=== PATIENT | female | born 1970 | race Two or more races ===

== ENCOUNTER 2020-11-24 13:01 | Emergency (ER) | payer MEDICAID ==
[~2020-11-24] VITALS: Ht 170.2 cm; Wt 90.9 kg
[~2020-11-24 13:01] MED LIST: ORPH100T PO; OXYC1TAB15 PO
[2020-11-24] MEDS ORDERED: IV NORMAL SALINE 1000ML BAG 1,000 ML IV ONE (13:45)
[2020-11-24] MEDS ORDERED: ONDANSETRON PF 4 MG/2 ML VIAL. IV ONE (13:45)
[2020-11-24] MEDS ORDERED: MORPHINE SULFATE 4 MG/ML VIAL. IV ONE (13:45)
--- NOTE | 2020-11-24 14:36 | ED.ADGEN ---
Past Medical History Past Medical History: Abscess, Anxiety, Cancer, Depression, High Cholesterol, Hypertension, Kidney Stone, Other Additional Past Medical Histor: CERV. CA, Past Surgical History: , Tonsillectomy, Other Additional Past Surgical Histo: , Smoking Status: Former Smoker Additional Information: REPORTS THAT SHE QUIT "11/21/20" Alcohol Use: None Drug Use: None Social History Narrative: LAST NIGHT TOOK FRIENDS CHRIS, OMERO DYKES General Adult EDM: Chief Complaint: EARACHE/EAR PAIN HPI: HPI: Patient is a 50 year old female who presents emergency department with complaints of pain and swelling in her right ear for the last 3 days. Patient states that she went to [facility] yesterday and was prescribed eardrops, ibuprofen, and oral antibiotic. She states that her ear is so swollen she can get the drops to go into her ear. She denies any fever, body aches, nausea, v omiting, dizziness, decreased hearing, syncope, abdominal pain, cough, or sore throat. She currently rates her pain 10 out of 10 on pain scale, she denies any alleviating factors, the pain is worse if her ear is touched or she moves her jaw. Review of Systems: Review of Systems: Complete ROS is negative unless otherwise noted in HPI. Current Medications: Current Medications Medications (Trade) Dose Ordered Sig/[facility] Start Time Stop Time Status Last Admin Dose Admin Morphine Sulfate (Morphine Sulfate) 4 mg 1X ONCE 11/24/20 13:45 11/24/20 13:48 DC 11/24/20 14:28 4 MG Neomycin/ Polymyxin/ Hydrocortisone (Cortisporin Otic) 4 drop 1X ONCE 11/24/20 15:30 11/24/20 15:31 Ondansetron HCl (Zofran) 4 mg 1X ONCE 11/24/20 13:45 11/24/20 13:48 DC 11/24/20 14:28 4 MG Sodium Chloride 1,000 ml @ 1,000 mls/hr 1X ONCE 11/24/20 13:45 11/24/20 14:44 DC 11/24/20 14:27 1,000 MLS/HR Allergies: Allergies: Allergies Coded Allergies Type Severity Reaction Last Updated Verified No Known Drug Allergies 10/01/13 No Physical Exam: PE: See Above Constitutional: Well developed, well nourished, no acute distress, non-toxic appearance. [] HENT: Normocephalic, atraumatic, left TM normal, left external ear normal, nose normal; diffuse erythema and swelling to the right external ear canal, unable to visualize the right TM, pain with movement of R ear Eyes: PERRLA, EOMI, conjunctiva normal, no discharge. [] Neck: Normal range of motion, supple, nontender, no stridor. [] Cardiovascular:Heart rate regular rhythm Lungs & Thorax: Respirations even and unlabored, no retractions, no respiratory distress Skin: Warm, dry; erythema/edema/TTP right tragus, TMJ, and mastoid process Extremities: No cyanosis, ROM intact, no edema. [] Neurologic: Alert and oriented X 3, no focal deficits noted. [] Psychologic: Affect normal, judgement normal, mood normal. [] Current Patient Data: Labs: Laboratory Tests Test 11/24/20 14:22 White Blood Count 7.8 x10^3/uL (4.0-11.0) Red Blood Count 4.24 x10^6/uL (3.50-5.40) Hemoglobin 13.1 g/dL (12.0-15.5) Hematocrit 37.8 % (36.0-47.0) Mean Corpuscular Volume 89 fL (79-100) Mean Corpuscular Hemoglobin 31 pg (25-35) Mean Corpuscular Hemoglobin Concent 35 g/dL (31-37) Red Cell Distribution Width 13.1 % (11.5-14.5) Platelet Count 277 x10^3/uL (140-400) Neutrophils (%) (Auto) 63 % (31-73) Lymphocytes (%) (Auto) 24 % (24-48) Monocytes (%) (Auto) 11 % (0-9) H Eosinophils (%) (Auto) 1 % (0-3) Basophils (%) (Auto) 0 % (0-3) Neutrophils # (Auto) 5.0 x10^3/uL (1.8-7.7) Lymphocytes # (Auto) 1.9 x10^3/uL (1.0-4.8) Monocytes # (Auto) 0.9 x10^3/uL (0.0-1.1) Eosinophils # (Auto) 0.1 x10^3/uL (0.0-0.7) Basophils # (Auto) 0.0 x10^3/uL (0.0-0.2) Sodium Level 139 mmol/L (136-145) Potassium Level 3.8 mmol/L (3.5-5.1) Chloride Level 103 mmol/L (98-107) Carbon Dioxide Level 25 mmol/L (21-32) Anion Gap 11 (6-14) Blood Urea Nitrogen 11 mg/dL (7-20) Creatinine 0.9 mg/dL (0.6-1.0) Estimated GFR (Cockcroft-Gault) 66.3 Glucose Level 155 mg/dL (70-99) H Calcium Level 8.6 mg/dL (8.5-10.1) C-Reactive Protein, Quantitative 71.6 mg/L (0-3.3) H Laboratory Tests 11/24/20 14:22 Laboratory Tests 11/24/20 14:22 Vital Signs: Vital Signs Date Time Temp Pulse Resp B/P (MAP) Pulse Ox O2 Delivery O2 Flow Rate FiO2 11/24/20 14:28 18 100 Room Air 11/24/20 13:40 98.7 90 161/83 (109) 98.7 EKG: EKG: [] Heart Score: C/O Chest Pain: No Risk Scores: Score 0 - 3: 2.5% MACE over next 6 weeks - Discharge Home Score 4 - 6: 20.3% MACE over next 6 weeks - Admit for Clinical Observation Score 7 - 10: 72.7% MACE over next 6 weeks - Early Invasive Strategies Radiology/Procedures: Radiology/Procedures: An ear wick was inserted into the right ear canal by myself, polymyxin/neomycin/HC drops were then administered to expand the wick. No complications, patient tolerated procedure well [] Course & Med Decision Making: Course & Med Decision Making Pertinent Labs and Imaging studies reviewed. (See chart for details) [] Dragon Disclaimer: Dragon Disclaimer: This electronic medical record was generated, in whole or in part, using a voice recognition dictation system. Departure Departure Impression: Primary Impression: Right otitis externa Disposition: HOME / SELF CARE / HOMELESS Condition: STABLE Referrals: NO PCP (PCP) DARIN CHAVARRIA MD Patient Instructions: Otitis Externa, [id number] Additional Instructions: Fill the prescriptions and use as directed. Discontinue use of previously prescribed antibiotic and ear drops. Follow up with ENT on Thursday, I have provided Dr. Chavarria's information. Return to the ER if symptoms worsen or fever develops. Scripts Hydrocodone Bit/Acetaminophen (HYDROCODONE-APAP 5-325 ) 1 Tab Tablet 1 TAB PO PRN Q6HRS PRN for PAIN for 3 Days, #10 TAB 0 Refills Prov: JOAQUIM THOMPSON COMMUN[employer] AFFAIRS DIRECTOR 11/24/20 Levofloxacin (LEVOFLOXACIN) 750 Mg Tablet 1 TAB PO DAILY for 10 Days, #10 TAB 0 Refills Prov: JOAQUIM THOMPSON COMMUNITY AFFAIRS DIRECTOR 11/24/20 Ciprofloxacin/Hydrocortisone (CIPRO HC OTIC SUSPENSION) 10 Ml Drops.susp 3 DROP RIGHT EAR BID for 10 Days, #10 ML 0 Refills Prov: JOAQUIM THOMPSON COMMUN[employer] AFFAIRS DIRECTOR 11/24/20 Problem Qualifiers Primary Impression: Right otitis externa Otitis externa type: diffuse Chronicity: acute Qualified Codes: H60.311 - Diffuse otitis externa, right ear JOAQUIM THOMPSON COMMUN[facility] AFFAIRS DIRECTOR November 24, 2020 14:36
[2020-11-24 14:43] LABS: BASO % 0 % (0-3); EOS # 0.1 x10^3/uL (0.0-0.7); EOS % 1 % (0-3); HEMATOCRIT 37.8 % (36.0-47.0); HEMOGLOBIN 13.1 g/dL (12.0-15.5); LYMPH # 1.9 x10^3/uL (1.0-4.8); LYMPH % 24 % (24-48); MEAN CORPUSCULAR HEMOGLOBIN 31 pg (25-35); MEAN CORPUSCULAR HGB CONC 35 g/dL (31-37); MEAN CORPUSCULAR VOLUME 89 fL (79-100); MONO # 0.9 x10^3/uL (0.0-1.1); MONO % 11 % (0-9); NEUT % 63 % (31-73); PLATELET COUNT 277 x10^3/uL (140-400); RED BLOOD COUNT 4.24 x10^6/uL (3.50-5.40); RED CELL DISTRIBUTION WIDTH 13.1 % (11.5-14.5); WHITE BLOOD COUNT 7.8 x10^3/uL (4.0-11.0)
[2020-11-24 14:51] LABS: CALCIUM 8.6 mg/dL (8.5-10.1); CREATININE 0.9 mg/dL (0.6-1.0); GFR 66.3; POTASSIUM 3.8 mmol/L (3.5-5.1)
[2020-11-24 14:53] LABS: C-REACTIVE PROTEIN 71.6 mg/L (0-3.3)
--- NOTE | 2020-11-24 15:09 | RAD ---
CT MAXILLOFACIAL WITHOUT CONTRAST Clinical indications: Right otitis externa, pain. Technique: Helical CT scanning of both temporal bones was performed. 1 mm reconstructed axial and cor onal small [id number] CT images of each temporal bone were generated and reviewed on a computer mo nitor. One or more of the following dose reduction techniques were utilized: Automated exposure contr ol (AEC), Adjustment of mA and/or kV according to patient size, Use of iterative reconstruction techn ique such as ASiR, CT scan done according to ALARA and image gently/image wisely Findings: Right temporal bone:Partial opacification of the right mastoid air cells The middle ear ossicles are identified and no erosion is seen. The scutum appears normal. Opacification of the middle ear cavity. The vestibulocochlear complex and semicircular canals are morphologically normal in appearance. The internal auditory canal is unremarkable. The facial nerve canal is unremarkable. The jugular foramen is unremarkable. External auditory canal wall thickening. Left temporal bone: The mastoid sinus and aditus ad antrum and epitympanic recess are clear. The midd le ear ossicles are identified and no erosion is seen. The scutum appears normal. No abnormal thicken ing of the tympanic membrane is seen. The middle ear cavity is clear. The vestibulocochlear complex a nd semicircular canals are morphologically normal in appearance. The internal auditory canal is unrem arkable. The facial nerve canal is unremarkable. The jugular foramen is unremarkable. The external ea r canal is open. Impression: Right external auditory canal wall thickening consistent with patient's history of otitis externa. Op acification of the right middle ear and small amount of mastoid fluid, likely coexisting otitis media with mastoid effusion. No evidence of coalescent mastoiditis. No osseous erosions. Electronically signed by: Seng Thompson MD (11/24/2020 3:07 PM) [id number]
[2020-11-24 15:30] VITALS: BP 143/86
[2020-11-24] MEDS ORDERED: NEOMYCIN/POLYMYXIN/HC OTIC SUSPENSION 10ML BOTTLE. AD ONE (15:30)
[2020-11-24] MEDS ORDERED: LEVO750T5 PO (15:38)
[2020-11-24] MEDS ORDERED: CIPR10DR RIGHT EAR (15:38)
[2020-11-24] MEDS ORDERED: HYDR-2761 PO (15:39)
== END 2020-11-24 15:56 | disposition home or self-care (01) ==
LOC: ER 13:01
DX: H60.311 Diffuse otitis externa, right ear (principal); E78.00 Pure hypercholesterolemia, unspecified; I10 Essential (primary) hypertension; Z87.891 Personal history of nicotine dependence
CPT/HCPCS: 36415; 70486; 80048; 85025; 85651; 86140; 96361; 96374; 96375; 99285; J2270; J2405; J7030

== ENCOUNTER 2021-10-16 02:38 | Inpatient (IN) | payer MEDICAID ==
[~2021-10-16] VITALS: Ht 170.2 cm; Wt 86.4 kg
[~2021-10-16 02:38] MED LIST changes: +CIPR10DR RIGHT EAR; +HYDR-2761 PO; +LEVO750T5 PO
[2021-10-16] MEDS ORDERED: MORPHINE SULFATE 4 MG/ML INJ. IVP ONE (05:15)
[2021-10-16] MEDS ORDERED: ONDANSETRON PF 4 MG/2 ML VIAL. IVP ONE (05:15)
[2021-10-16] MEDS ORDERED: KETOROLAC 15 MG/ML VIAL. IVP ONE (05:15)
[2021-10-16] MEDS ORDERED: IV NORMAL SALINE 1000ML BAG 1,000 ML IV ONE (05:15)
[2021-10-16 05:35] LABS: BASO % 1 % (0-3); EOS # 0.2 x10^3/uL (0.0-0.7); EOS % 3 % (0-3); HEMATOCRIT 43.3 % (36.0-47.0); HEMOGLOBIN 14.6 g/dL (12.0-15.5); LYMPH # 1.5 x10^3/uL (1.0-4.8); LYMPH % 28 % (24-48); MEAN CORPUSCULAR HEMOGLOBIN 30 pg (25-35); MEAN CORPUSCULAR HGB CONC 34 g/dL (31-37); MEAN CORPUSCULAR VOLUME 89 fL (79-100); MONO # 0.5 x10^3/uL (0.0-1.1); MONO % 9 % (0-9); NEUT # 3.2 x10^3/uL (1.8-7.7); NEUT % 60 % (31-73); PLATELET COUNT 303 x10^3/uL (140-400); RED BLOOD COUNT 4.84 x10^6/uL (3.50-5.40); RED CELL DISTRIBUTION WIDTH 14.7 % (11.5-14.5); WHITE BLOOD COUNT 5.4 x10^3/uL (4.0-11.0)
[2021-10-16 05:44] LABS: CALCIUM 9.2 mg/dL (8.5-10.1); GFR 58.5; POTASSIUM 4.3 mmol/L (3.5-5.1)
[2021-10-16 05:56] LABS: ALBUMIN/GLOBULIN RATIO 1.1 (1.0-1.7); TOTAL BILIRUBIN 1.6 mg/dL (0.2-1.0); TOTAL PROTEIN 7.6 g/dL (6.4-8.2)
--- NOTE | 2021-10-16 06:10 | RAD ---
EXAM: ULTRASOUND ABDOMEN LIMITED CLINICAL HISTORY: Right upper quadrant abdominal pain COMPARISON: CT abdomen August 15, 2018 Findings: The pancreas and most of the aorta and IVC are obscured by bowel gas shadowing. Visualized hepatic IVC is normal. Normal liver echogenicity. No liver mass documented. There is patent hepatopedal portal vein blood fl ow. No gallstones. There is gallbladder sludge. Patient Information Coordinator reports a positive sonographic Godinez sig n. The tobacco wrapping machine tender documents increased gallbladder wall thickness measuring 4 mm however on the saved images the wall thickness appears normal measuring less than 3 mm. No pericholecystic fluid evident. No biliary ductal dilation the common bile duct diameter is 5 mm which is normal. Right renal length 10.3 cm. No mass or hydronephrosis of the right kidney. Spleen and left kidney wer e not evaluated. IMPRESSION: Gallbladder sludge. No gallstones. There is a positive sonographic Godinez sign present, w hile no significant inflammatory changes of the gallbladder are evident sonographically, the positive Godinez's could indicate early changes of cholecystitis. This may be further assessed with hepatobili montserrat scan imaging. Electronically signed by: Lucas Saucedo MD (10/16/2021 6:08 AM) [facility]
--- NOTE | 2021-10-16 06:11 | PHYS DOC ---
Past Medical History Past Medical History: Abscess, Anxiety, Cancer, Depression, High Cholesterol, Hypertension, Kidney Stone, Other Additional Past Medical Histor: CERVICAL CANCER (PATRICIA BALTAZAR MD) Past Surgical History: Additional Past Surgical Histo: , (PATRICIA BALTAZAR MD) Smoking Status: Former Smoker Alcohol Use: None Drug Use: None (PATRICIA BALTAZAR MD) Adult General Chief Complaint Chief Complaint: RIB PAIN HPI HPI The patient is a 51-year-old female with a history of hypertension, hyperlipidemia, cervical cancer recently diagnosed by her certified peer specialist, pending treatment, tobacco use. Ms. Mills presents for evaluation of right upper quadrant abdominal discomfort with radiation to the low midsternal chest, the epigastrium and the lower abdomen, with associated nausea, all with onset a few hours prior to arrival. This is the third episode of identical discomfort the patient has had over the past 2 weeks. Prior to that, she had never had these symptoms in the past. Discomfort is directly reproducible to palpation of the right upper quadrant. Severity of discomfort 6 out of 10 at present. No associated fevers, vomiting, upper respiratory congestion/rhinorrhea, cough, sore throat, shortness of breath, lower abdominal pain, flank pain, midline back pain, dysuria, hematuria, polyuria or oliguria, changes in bowel habits, pain or swelling to arms or legs. (PATRICIA BALTAZAR MD) Review of Systems Review of Systems A 12 point review of systems was completed and was negative except where noted in HPI above. (PATRICIA BALTAZAR MD) Current Medications Current Medications Current Medications Medications (Trade) Dose Ordered Sig/Sonny Start Time Stop Time Status Last Admin Dose Admin Ketorolac Tromethamine (Toradol 15mg Vial) 15 mg 1X ONCE 10/16/21 05:15 10/16/21 05:16 DC 10/16/21 05:26 15 MG Morphine Sulfate (Morphine Sulfate) 2 mg PRN Q2HR PRN 10/16/21 07:00 10/17/21 06:59 Ondansetron HCl (Zofran) 4 mg 1X ONCE 10/16/21 05:15 10/16/21 05:16 DC 10/16/21 05:26 4 MG Piperacillin Sod/ Tazobactam Sod 3.375 gm/Sodium Chloride 50 ml @ 100 mls/hr 1X ONCE 10/16/21 07:00 10/16/21 07:29 Sodium Chloride 1,000 ml @ 1,000 mls/hr 1X ONCE 10/16/21 05:15 10/16/21 06:14 DC 10/16/21 05:26 1,000 MLS/HR (CASSIE GOMEZ DO) Allergies Allergies Allergies Coded Allergies Type Severity Reaction Last Updated Verified No Known Drug Allergies 10/01/13 No (CASSIE GOMEZ DO) Physical Exam Physical Exam 51-year-old female appearing nontoxic and in no acute distress. Head is normocephalic and atraumatic. Neck is supple and nontender. Oropharynx is moist. Lungs are clear to auscultation at all stations. There is a normal S1 and S2 without rubs or gallops and capillary refill is appropriate, less than 2 seconds globally. Abdomen is soft and nondistended with mild focal right upper quadrant tenderness to palpation without rebound or guarding. No lower quadrant tenderness to palpation. Skin is warm and dry without cyanosis, clubbing or edema. Psychiatrically, the patient demonstrates appropriate mood and affect and is alert. Evaluation extremities reveals BUEs and BLEs neurovascularly intact distally with strength 5-5, sensation intact light touch in all nerve distributions, radial, DP and PT pulses 2+ and equal bilaterally, capillary refill less than 2 seconds, hands and feet warm and well-perfused. No dependent peripheral edema distally. No calf tenderness or swelling bilaterally. Homans test is negative bilaterally. (PATRICIA BALTAZAR MD) Current Patient Data Vital Signs Vital Signs Date Time Temp Pulse Resp B/P (MAP) Pulse Ox O2 Delivery O2 Flow Rate FiO2 10/16/21 04:57 98.8 91 16 173/97 (122) 97 Room Air 98.8 (CASSIE GOMEZ DO) Lab Values Laboratory Tests Test 10/16/21 05:22 White Blood Count 5.4 x10^3/uL (4.0-11.0) Red Blood Count 4.84 x10^6/uL (3.50-5.40) Hemoglobin 14.6 g/dL (12.0-15.5) Hematocrit 43.3 % (36.0-47.0) Mean Corpuscular Volume 89 fL (79-100) Mean Corpuscular Hemoglobin 30 pg (25-35) Mean Corpuscular Hemoglobin Concent 34 g/dL (31-37) Red Cell Distribution Width 14.7 % (11.5-14.5) H Platelet Count 303 x10^3/uL (140-400) Neutrophils (%) (Auto) 60 % (31-73) Lymphocytes (%) (Auto) 28 % (24-48) Monocytes (%) (Auto) 9 % (0-9) Eosinophils (%) (Auto) 3 % (0-3) Basophils (%) (Auto) 1 % (0-3) Neutrophils # (Auto) 3.2 x10^3/uL (1.8-7.7) Lymphocytes # (Auto) 1.5 x10^3/uL (1.0-4.8) Monocytes # (Auto) 0.5 x10^3/uL (0.0-1.1) Eosinophils # (Auto) 0.2 x10^3/uL (0.0-0.7) Basophils # (Auto) 0.0 x10^3/uL (0.0-0.2) Sodium Level 139 mmol/L (136-145) Potassium Level 4.3 mmol/L (3.5-5.1) Chloride Level 103 mmol/L (98-107) Carbon Dioxide Level 29 mmol/L (21-32) Anion Gap 7 (6-14) Blood Urea Nitrogen 15 mg/dL (7-20) Creatinine 1.0 mg/dL (0.6-1.0) Estimated GFR (Cockcroft-Gault) 58.5 BUN/Creatinine Ratio 15 (6-20) Glucose Level 109 mg/dL (70-99) H Calcium Level 9.2 mg/dL (8.5-10.1) Total Bilirubin 1.6 mg/dL (0.2-1.0) H Aspartate Amino Transferase (AST) 1587 U/L (15-37) H Alanine Aminotransferase (ALT) 1452 U/L (14-59) H Alkaline Phosphatase 190 U/L (46-116) H Troponin I High Sensitivity 5 ng/L (4-50) Total Protein 7.6 g/dL (6.4-8.2) Albumin 4.0 g/dL (3.4-5.0) Albumin/Globulin Ratio 1.1 (1.0-1.7) Lipase 9056 U/L (73-393) H Laboratory Tests 10/16/21 05:22 Laboratory Tests 10/16/21 05:22 (CASSIE GOMEZ DO) EKG EKG Sinus rhythm, rate 81, no acute ST elevation or depression, DC 136, QRS 76, QTc 414, EP interpretation. Nonischemic tracing, intervals appropriate. (PATRICIA BALTAZAR MD) Radiology/Procedures Radiology/Procedures [] (PATRICIA BALTAZAR MD) Course & Med Decision Making Course & Med Decision Making Pending rest of labs and ultrasound read, transition of care to Dr. Gomez. (PATRICIA BALTAZAR MD) Course & Med Decision Making Discussed with hospitalist and SOC. Labd wiork and US were reviewed Started on abx (CASSIE GOMEZ DO) Dragon Disclaimer Dragon Disclaimer This electronic medical record was generated, in whole or in part, using a voice recognition dictation system. (PATRICIA BALTAZAR MD) Departure Departure Impression: Primary Impression: Right upper quadrant abdominal pain Condition: STABLE Referrals: NO PCP (PCP) PATRICIA BALTAZAR MD Oct 16, 2021 06:11 CASSIE GOMEZ DO Oct 16, 2021 06:52
[2021-10-16] MEDS ORDERED: PIPERACILLIN/TAZOBACTAM 3.375 GM in IV NORMAL SALINE 50ML 50 ML IV ONE (07:00)
[2021-10-16 07:15] LABS: AMORPHOUS SEDIMENT,UR PRESENT /HPF; BACTERIA,URINE FEW /HPF (0-FEW); RBC,URINE 0 /HPF (0-2); WBC,URINE OCC /HPF (0-4)
[2021-10-16] MEDS: MORPHINE SULFATE 2 MG/ML INJ. IVP PRN ×3 (07:46→23:32)
[2021-10-16 08:00] VITALS: BP 136/86
[2021-10-16] MEDS ORDERED: IOHEXOL 300 MG/ML 100ML VIAL. IV ONE (08:15)
[2021-10-16] MEDS ORDERED: CONTRAST GIVEN. MC PRN (08:15)
[2021-10-16] MEDS ORDERED: IOHEXOL 240 MG/ML 50ML VIAL. PO ONE (08:15)
[2021-10-16] MEDS ORDERED: SENNOSIDES 8.6 MG TABLET PO PRN (09:00)
[2021-10-16] MEDS ORDERED: ONDANSETRON PF 4 MG/2 ML VIAL. IVP PRN (09:00)
[2021-10-16] MEDS ORDERED: diphenhydrAMINE 50 MG/ML VIAL IVP PRN (09:00)
[2021-10-16] MEDS ORDERED: MORPHINE SULFATE 2 MG/ML INJ. IV PRN (09:00)
[2021-10-16] MEDS ORDERED: ZOLPIDEM 5 MG TABLET. PO PRN (09:00)
[2021-10-16] MEDS ORDERED: oxyCODONE/APAP 5/325 1 TAB TABLET PO PRN (09:00)
[2021-10-16] MEDS ORDERED: MORPHINE SULFATE 2 MG/ML INJ. IVP PRN (09:00)
[2021-10-16] MEDS ORDERED: DOCUSATE SODIUM 100 MG CAPSULE. PO PRN (09:00)
[2021-10-16] MEDS ORDERED: DEXTROSE 50% 25 GM / 50ML DISP.SYRIN. IV PRN (09:00)
[2021-10-16] MEDS ORDERED: diphenhydrAMINE HCL 25 MG CAPSULE PO PRN (09:00)
[2021-10-16] MEDS ORDERED: LORazepam 0.5 MG TABLET PO PRN (09:00)
[2021-10-16] MEDS ORDERED: PROCHLORPERAZINE 10 MG/2 ML VIAL. IV PRN (09:00)
[2021-10-16] MEDS ORDERED: CLOB15CR TP (09:23)
[2021-10-16] MEDS ORDERED: LISI20TA18 PO (09:23)
[2021-10-16] MEDS ORDERED: PRAV20TA2 PO (09:23)
[2021-10-16] MEDS ORDERED: CITA40TA6 PO (09:23)
[2021-10-16] MEDS: ENOXAPARIN 40 MG/0.4 ML SYRINGE. SQ SCH (09:28)
[2021-10-16] MEDS: IV NORMAL SALINE 1000ML BAG 1,000 ML IV SCH ×2 (09:33→16:56)
--- NOTE | 2021-10-16 10:18 | RAD ---
Exam: CT abdomen/pelvis with intravenous contrast Indication: Pancreatitis Comparison: CT abdomen pelvis 08/15/2018 Technique: Helical CT imaging performed of the abdomen and pelvis after the intravenous administratio n of 75 mL Omnipaque 300 contrast. Sagittal and coronal reformats were obtained. One or more of the following individualized dose reduction techniques were utilized for this examinat ion: 1. Automated exposure control 2. Adjustment of the mA and/or kV according to patient size 3. Use of iterative reconstruction technique. Findings: Lower chest: Mild dependent atelectasis in the lungs. The heart is normal in size. Liver: The liver is normal in size. No focal liver lesion. Gallbladder/Biliary Tree: The gallbladder is mildly distended without obvious wall thickening or radi opaque cholelithiasis. Bile ducts are normal. Pancreas: Normal. Spleen: Normal. Adrenal Glands: Normal. Kidneys/Ureters/Bladder: Kidneys are normal in size and enhance symmetrically. No hydronephrosis. Ure ters and bladder are normal Reproductive Organs: Uterus is anteverted. No adnexal mass. Stomach, small bowel, and colon: Stomach is normal. There is no small bowel obstruction. The appendix is normal. The colon is normal. Vasculature: No aortic aneurysm. Lymph Nodes: No lymphadenopathy. Peritoneum and retroperitoneum: No free fluid or free air. Bones: No acute osseous abnormality. Mild degenerative disc disease. Miscellaneous: None. IMPRESSION: 1. Mildly distended gallbladder. 2. Normal appearance of the pancreas. Electronically signed by: Moira Little MD (10/16/2021 10:15 AM) [id number]
--- NOTE | 2021-10-16 10:32 | PDOC2 ---
GI CONSULT Date of Service: DATE: 10/16/21 TIME: 10:24 Reason For Consult: pancreatitis HPI: HPI: 51 y/o female admitted through ER. Pain "like indigestion" that starts "above my cervix" and radiates to epigastrium and to both sides of abdomen and lower back woke her up during the night. Third occurrence in 2 weeks. Past two times improved w/ Tums. Neoga nauseated, no vomiting. Typically no issues w/ heartburn/reflux. No dysphagia, diarrhea, constipation, hematochezia, melena, change in appetite, or weight loss. No previous EGD or colonoscopy. No GB, liver, pancreas, or PUD history. No NSAIDs. H/o cervical cancer - s/p LEEP years ago. Recently had a pelvic exam, pap, and US - says "it's back" - scheduled for follow-up @ [facility] [place]. PMH: PMH: pre-DM, HTN, recent Shingles , LEEP, abscess drainage (around groin) FH: Family History: Other (has a really big family so doens't really know but brother currently hospitalized for bleeding ulcer) Social History: Smoke: <1 pack per day ALCOHOL: other (had two shots with her friend yesterday, otherwise doesn't drink at all) Drugs: Other (past use - never IVDU) ROS: GEN: Denies fevers, chills, sweats HEENT: Denies blurred vision, sore throat CV: Denies chest pain RESP: Denies shortness of air, cough GI: Per HPI : Denies hematuria, dysuria ENDO: Denies weight changes NEURO: Denies confusion, dizziness MSK: Denies weakness, joint pain/swelling SKIN: Denies jaundice, pruritus Vitals: Vitals: Vital Signs Date Time Temp Pulse Resp B/P (MAP) Pulse Ox O2 Delivery O2 Flow Rate FiO2 10/16/21 09:06 Room Air 10/16/21 08:00 97.5 79 16 136/86 (103) 96 97.5 Labs: Labs: Laboratory Tests Test 10/16/21 05:22 10/16/21 06:35 White Blood Count 5.4 x10^3/uL (4.0-11.0) Red Blood Count 4.84 x10^6/uL (3.50-5.40) Hemoglobin 14.6 g/dL (12.0-15.5) Hematocrit 43.3 % (36.0-47.0) Mean Corpuscular Volume 89 fL (79-100) Mean Corpuscular Hemoglobin 30 pg (25-35) Mean Corpuscular Hemoglobin Concent 34 g/dL (31-37) Red Cell Distribution Width 14.7 % (11.5-14.5) Platelet Count 303 x10^3/uL (140-400) Neutrophils (%) (Auto) 60 % (31-73) Lymphocytes (%) (Auto) 28 % (24-48) Monocytes (%) (Auto) 9 % (0-9) Eosinophils (%) (Auto) 3 % (0-3) Basophils (%) (Auto) 1 % (0-3) Neutrophils # (Auto) 3.2 x10^3/uL (1.8-7.7) Lymphocytes # (Auto) 1.5 x10^3/uL (1.0-4.8) Monocytes # (Auto) 0.5 x10^3/uL (0.0-1.1) Eosinophils # (Auto) 0.2 x10^3/uL (0.0-0.7) Basophils # (Auto) 0.0 x10^3/uL (0.0-0.2) Sodium Level 139 mmol/L (136-145) Potassium Level 4.3 mmol/L (3.5-5.1) Chloride Level 103 mmol/L (98-107) Carbon Dioxide Level 29 mmol/L (21-32) Anion Gap 7 (6-14) Blood Urea Nitrogen 15 mg/dL (7-20) Creatinine 1.0 mg/dL (0.6-1.0) Estimated GFR (Cockcroft-Gault) 58.5 BUN/Creatinine Ratio 15 (6-20) Glucose Level 109 mg/dL (70-99) Calcium Level 9.2 mg/dL (8.5-10.1) Total Bilirubin 1.6 mg/dL (0.2-1.0) Aspartate Amino Transf (AST/SGOT) 1587 U/L (15-37) Alanine Aminotransferase (ALT/SGPT) 1452 U/L (14-59) Alkaline Phosphatase 190 U/L (46-116) Troponin I High Sensitivity 5 ng/L (4-50) Total Protein 7.6 g/dL (6.4-8.2) Albumin 4.0 g/dL (3.4-5.0) Albumin/Globulin Ratio 1.1 (1.0-1.7) Lipase 9056 U/L (73-393) Urine Collection Type Unknown Urine Color (Auto) Yellow Urine Turbidity Hazy Urine pH (Auto) 6.5 (<5.0-8.0) Urine Specific [place] 1.021 (1.000-1.030) Urine Protein (Auto) Negative mg/dL (Negative) Urine Glucose (Auto)(UA) Negative mg/dL (Negative) Urine Ketones (Auto) Negative mg/dL (Negative) Urine Blood (Auto) Negative (Negative) Urine Nitrite Negative (Negative) Urine Bilirubin (Auto) Negative (Negative) Urine Urobilinogen (Auto) 3 mg/dL (Normal) Urine Leukocyte Esterase (Auto) Negative (Negative) Urine RBC 0 /HPF (0-2) Urine WBC Occ /HPF (0-4) Urine Squamous Epithelial Cells Few /LPF Urine Amorphous Sediment Present /HPF Urine Bacteria Few /HPF (0-FEW) Urine Mucus Slight /LPF Allergies: Coded Allergies: No Known Drug Allergies (Unverified , 10/01/13) Medications: Current Medications Medications (Trade) Dose Ordered Sig/Sonny Route PRN Reason Start Time Stop Time Status Last Admin Dose Admin Sodium Chloride 1,000 ml @ 1,000 mls/hr 1X ONCE IV 10/16/21 05:15 10/16/21 06:14 DC 10/16/21 05:26 Ondansetron HCl (Zofran) 4 mg 1X ONCE IVP 10/16/21 05:15 10/16/21 05:16 DC 10/16/21 05:26 Ketorolac Tromethamine (Toradol 15mg Vial) 15 mg 1X ONCE IVP 10/16/21 05:15 10/16/21 05:16 DC 10/16/21 05:26 Morphine Sulfate (Morphine Sulfate) 4 mg 1X ONCE IVP 10/16/21 05:15 10/16/21 05:16 DC 10/16/21 05:27 Piperacillin Sod/ Tazobactam Sod 3.375 gm/Sodium Chloride 50 ml @ 100 mls/hr 1X ONCE IV 10/16/21 07:00 10/16/21 07:29 DC 10/16/21 07:27 Morphine Sulfate (Morphine Sulfate) 2 mg PRN Q2HR PRN IVP PAIN 10/16/21 07:00 10/17/21 06:59 10/16/21 07:46 Iohexol (Omnipaque 240 Mg/ml) 50 ml 1X ONCE PO 10/16/21 08:15 10/16/21 08:16 DC 10/16/21 08:15 Iohexol (Omnipaque 300 Mg/ml) 75 ml 1X ONCE IV 10/16/21 08:15 10/16/21 08:16 DC 10/16/21 08:15 Sodium Chloride 1,000 ml @ 100 mls/hr Q10H IV 10/16/21 09:00 10/16/21 09:33 Enoxaparin Sodium (Lovenox 40mg Syringe) 40 mg Q24H SQ 10/16/21 10:00 10/16/21 09:28 Imaging: Imaging: Abd US IMPRESSION: Gallbladder sludge. No gallstones. There is a positive sonographic Godinez sign present, while no significant inflammatory changes of the gallbladder are evident sonographically, the positive Godinez's could indicate early changes of cholecystitis. This may be further assessed with hepatobiliary scan imaging. CBD 5mm CT A/P IMPRESSION: 1. Mildly distended gallbladder. 2. Normal appearance of the pancreas. PE: GEN: NAD HEENT: Atraumatic, PERRL LUNGS: CTAB HEART: RRR ABD: quiet, soft, non-tender - "I just got morphine" EXTREMITY: No edema SKIN: points to area where recently had Shingles rash - healed NEURO/PSYCH: A & O 3 A/P: A/P: Recurrent abdominal pain Pancreatitis, elevated LFTs - GB sludge, normal CBD, unremarkable pancreas on imaging H/o cervical cancer -- Observe GI-hilliard - supportive care. Surgery opinion pending - eventually need cholecystectomy/IOC. Empiric PPI. CORBY CORDON Oct 16, 2021 10:32
[2021-10-16] MEDS: PANTOPRAZOLE IV PUSH 40 MG VIAL. IVP SCH (10:56)
[2021-10-16 11:00] VITALS: BP 118/77
--- NOTE | 2021-10-16 11:28 | PDOC1 ---
History and Physical Date of Service: DOS: DATE: 10/16/21 TIME: 11:21 History of Present Illness: HPI: 51-year-old female with past medical history of depression/anxiety, hypertension and kidney stones and cervical cancer who is pending treatment for that comes in with right upper quadrant pain that radiates to the substernal region and lower abdominal region. She does endorse nausea a few hours before arrival. Apparently this is the third episode of similar abdominal pain for the past 2 weeks. She has never had pain like this before that. Pain is 6 out of 10. Denies fevers, shortness of breath, cough, upper respiratory symptoms, hematuria, constipation, diarrhea, oliguria or extremity pain. Past Medical/Surgical History: PMH/PSH: Past Medical History: Abscess, Anxiety, Cancer, Depression, High Cholesterol, Hypertension, Kidney Stone, CERVICAL CANCER Past Surgical History: , , Allergies: Allergies: Coded Allergies: No Known Drug Allergies (Unverified , 10/01/13) Family History: Family History: Reviewed with no relative findings in the chart Social History: Social History: Smoking Status: Former Smoker Alcohol Use: None Drug Use: None Current Medications: Current Medications Current Medications Sodium Chloride 1,000 ml @ 1,000 mls/hr 1X ONCE IV Last administered on 10/16/21at 05:26; Start 10/16/21 at 05:15; Stop 10/16/21 at 06:14; Status DC Ondansetron HCl (Zofran) 4 mg 1X ONCE IVP Last administered on 10/16/21at 05:26; Start 10/16/21 at 05:15; Stop 10/16/21 at 05:16; Status DC Ketorolac Tromethamine (Toradol 15mg Vial) 15 mg 1X ONCE IVP Last administered on 10/16/21at 05:26; Start 10/16/21 at 05:15; Stop 10/16/21 at 05:16; Status DC Morphine Sulfate (Morphine Sulfate) 4 mg 1X ONCE IVP Last administered on 10/16/21at 05:27; Start 10/16/21 at 05:15; Stop 10/16/21 at 05:16; Status DC Piperacillin Sod/ Tazobactam Sod 3.375 gm/Sodium Chloride 50 ml @ 100 mls/hr 1X ONCE IV Last administered on 10/16/21at 07:27; Start 10/16/21 at 07:00; Stop 10/16/21 at 07:29; Status DC Morphine Sulfate (Morphine Sulfate) 2 mg PRN Q2HR PRN IVP PAIN Last administered on 10/16/21at 07:46; Start 10/16/21 at 07:00; Stop 10/17/21 at 06:59 Iohexol (Omnipaque 240 Mg/ml) 50 ml 1X ONCE PO Last administered on 10/16/21at 08:15; Start 10/16/21 at 08:15; Stop 10/16/21 at 08:16; Status DC Iohexol (Omnipaque 300 Mg/ml) 75 ml 1X ONCE IV Last administered on 10/16/21at 08:15; Start 10/16/21 at 08:15; Stop 10/16/21 at 08:16; Status DC Info (CONTRAST GIVEN -- Rx MONITORING) 1 each PRN DAILY PRN MC SEE COMMENTS; Start 10/16/21 at 08:15; Stop 10/18/21 at 08:14 Sennosides (Senna) 17.2 mg PRN BID PRN PO CONSTIPATION; Start 10/16/21 at 09:00 Docusate Sodium (Colace) 100 mg PRN DAILY PRN PO HARD STOOLS; Start 10/16/21 at 09:00 Ondansetron HCl (Zofran) 4 mg PRN Q6HRS PRN IVP NAUSEA/VOMITING, 1st CHOICE; Start 10/16/21 at 09:00 Dextrose (Dextrose 50%-Water Syringe) 12.5 gm PRN Q15MIN PRN IV SEE COMMENTS; Start 10/16/21 at 09:00 Sodium Chloride 1,000 ml @ 100 mls/hr Q10H IV Last administered on 10/16/21at 09:33; Start 10/16/21 at 09:00 Acetaminophen (Tylenol) 650 mg PRN Q4HRS PRN PO TEMP OVER 100.4F OR MILD PAIN; Start 10/16/21 at 09:00 Lorazepam (Ativan) 0.5 mg PRN Q6HRS PRN PO ANXIETY / AGITATION; Start 10/16/21 at 09:00 Lorazepam (Ativan Inj) 0.25 mg PRN Q4HRS PRN IV ANXIETY / AGITATION; Start 10/16/21 at 09:00 Enoxaparin Sodium (Lovenox 40mg Syringe) 40 mg Q24H SQ Last administered on 10/16/21at 09:28; Start 10/16/21 at 10:00 Oxycodone/ Acetaminophen (Percocet 5/325) 1 tab PRN Q4HRS PRN PO MILD PAIN, 1ST CHOICE; Start 10/16/21 at 09:00 Oxycodone/ Acetaminophen (Percocet 5/325) 2 tab PRN Q4HRS PRN PO MODERATE PAIN, SEVERE PAIN; Start 10/16/21 at 09:00 Morphine Sulfate (Morphine Sulfate) 1 mg PRN Q1HR PRN IV PAIN; Start 10/16/21 at 09:00 Morphine Sulfate (Morphine Sulfate) 2 mg PRN Q2HR PRN IVP SEVERE PAIN 7-10; Start 10/16/21 at 09:00; Stop 10/17/21 at 08:59 Prochlorperazine Edisylate (Compazine) 10 mg PRN Q6HRS PRN IV NAUSEA/VOMITING, 2nd CHOICE; Start 10/16/21 at 09:00 Diphenhydramine HCl (Benadryl) 25 mg PRN Q6HRS PRN IVP ITCHING; Start 10/16/21 at 09:00 Diphenhydramine HCl (Benadryl) 25 mg PRN Q6HRS PRN PO ITCHING; Start 10/16/21 at 09:00 Diphenhydramine HCl (Benadryl) 25 mg PRN QHS PRN PO INSOMNIA, 1st CHOICE; Start 10/16/21 at 09:00 Zolpidem Tartrate (Ambien) 2.5 mg PRN QHS PRN PO INSOMNIA, 2nd CHOICE; Start 10/16/21 at 09:00 Pantoprazole Sodium (PROTONIX VIAL for IV PUSH) 40 mg DAILYAC IVP Last administered on 10/16/21at 10:56; Start 10/16/21 at 11:30 Active Scripts Active Reported Clobetasol Propionate 15 Gm Cream..g. 1 Avni TP QODAY Citalopram Hbr (Citalopram Hydrobromide) 40 Mg Tablet 1 Tab PO DAILY Pravastatin Sodium 20 Mg Tablet 1 Tab PO DAILY Lisinopril 20 Mg Tablet 1 Tab PO DAILY ROS: Review of Systems Review of System REVIEW OF SYSTEMS: GENERAL: Denies weakness SKIN: No bruising, hair changes or rashes. EYES: No blurred, double or loss of vision. NOSE AND THROAT: No history of nosebleeds, hoarseness or sore throat. HEART: No history of palpitations, chest pain or shortness of breath on exertion. LUNGS: Denies cough, hemoptysis, wheezing or shortness of breath. GASTROINTESTINAL: Positive for abdominal pain GENITOURINARY: No history of frequency, urgency, hesitancy or nocturia. NEUROLOGIC: Denies history of numbness, tingling, or tremor. PSYCHIATRIC: No history of panic, anxiety or depression. ENDOCRINE: No history of heat or cold intolerance, polyuria or polydipsia. EXTREMITIES: Denies joint pain, pain on walking or stiffness. Physical Exam: Vital Signs: Vital Signs Date Time Temp Pulse Resp B/P (MAP) Pulse Ox O2 Delivery O2 Flow Rate FiO2 10/16/21 09:06 Room Air 10/16/21 08:00 97.5 79 16 136/86 (103) 96 97.5 Physcial Exam: General: Well developed, well nourished, no acute distress, well appearing HEENT: Pupils equally round and reactive to light, EOMI, no discharge, normal conjunctiva Neck: Supple, no nuchal rigidity, no JVD, trachea midline, no tenderness Cardiac: RRR, no murmurs, no gallops, no rubs Chest/Lungs: CTAB, no wheeze, no rhonchi, no crackles Abdomen: soft, non-distended, no guarding, no peritoneal signs, tenderness to the epigastric and right upper quadrant portions Back: No tenderness Extremities: no edema, pulses intact, non-tender,capillary refill <3 sec bilateral upper and lower extremities, Neuro: Alert and oriented x 4, no focal deficits, normal speech Labs: Labs: Laboratory Tests Test 10/16/21 05:22 10/16/21 06:35 White Blood Count 5.4 x10^3/uL (4.0-11.0) Red Blood Count 4.84 x10^6/uL (3.50-5.40) Hemoglobin 14.6 g/dL (12.0-15.5) Hematocrit 43.3 % (36.0-47.0) Mean Corpuscular Volume 89 fL (79-100) Mean Corpuscular Hemoglobin 30 pg (25-35) Mean Corpuscular Hemoglobin Concent 34 g/dL (31-37) Red Cell Distribution Width 14.7 % (11.5-14.5) Platelet Count 303 x10^3/uL (140-400) Neutrophils (%) (Auto) 60 % (31-73) Lymphocytes (%) (Auto) 28 % (24-48) Monocytes (%) (Auto) 9 % (0-9) Eosinophils (%) (Auto) 3 % (0-3) Basophils (%) (Auto) 1 % (0-3) Neutrophils # (Auto) 3.2 x10^3/uL (1.8-7.7) Lymphocytes # (Auto) 1.5 x10^3/uL (1.0-4.8) Monocytes # (Auto) 0.5 x10^3/uL (0.0-1.1) Eosinophils # (Auto) 0.2 x10^3/uL (0.0-0.7) Basophils # (Auto) 0.0 x10^3/uL (0.0-0.2) Sodium Level 139 mmol/L (136-145) Potassium Level 4.3 mmol/L (3.5-5.1) Chloride Level 103 mmol/L (98-107) Carbon Dioxide Level 29 mmol/L (21-32) Anion Gap 7 (6-14) Blood Urea Nitrogen 15 mg/dL (7-20) Creatinine 1.0 mg/dL (0.6-1.0) Estimated GFR (Cockcroft-Gault) 58.5 BUN/Creatinine Ratio 15 (6-20) Glucose Level 109 mg/dL (70-99) Calcium Level 9.2 mg/dL (8.5-10.1) Total Bilirubin 1.6 mg/dL (0.2-1.0) Aspartate Amino Transf (AST/SGOT) 1587 U/L (15-37) Alanine Aminotransferase (ALT/SGPT) 1452 U/L (14-59) Alkaline Phosphatase 190 U/L (46-116) Troponin I High Sensitivity 5 ng/L (4-50) Total Protein 7.6 g/dL (6.4-8.2) Albumin 4.0 g/dL (3.4-5.0) Albumin/Globulin Ratio 1.1 (1.0-1.7) Lipase 9056 U/L (73-393) Urine Collection Type Unknown Urine Color (Auto) Yellow Urine Turbidity Hazy Urine pH (Auto) 6.5 (<5.0-8.0) Urine Specific Bassett 1.021 (1.000-1.030) Urine Protein (Auto) Negative mg/dL (Negative) Urine Glucose (Auto)(UA) Negative mg/dL (Negative) Urine Ketones (Auto) Negative mg/dL (Negative) Urine Blood (Auto) Negative (Negative) Urine Nitrite Negative (Negative) Urine Bilirubin (Auto) Negative (Negative) Urine Urobilinogen (Auto) 3 mg/dL (Normal) Urine Leukocyte Esterase (Auto) Negative (Negative) Urine RBC 0 /HPF (0-2) Urine WBC Occ /HPF (0-4) Urine Squamous Epithelial Cells Few /LPF Urine Amorphous Sediment Present /HPF Urine Bacteria Few /HPF (0-FEW) Urine Mucus Slight /LPF Laboratory Tests Test 10/16/21 05:22 10/16/21 06:35 White Blood Count 5.4 x10^3/uL (4.0-11.0) Red Blood Count 4.84 x10^6/uL (3.50-5.40) Hemoglobin 14.6 g/dL (12.0-15.5) Hematocrit 43.3 % (36.0-47.0) Mean Corpuscular Volume 89 fL (79-100) Mean Corpuscular Hemoglobin 30 pg (25-35) Mean Corpuscular Hemoglobin Concent 34 g/dL (31-37) Red Cell Distribution Width 14.7 % (11.5-14.5) Platelet Count 303 x10^3/uL (140-400) Neutrophils (%) (Auto) 60 % (31-73) Lymphocytes (%) (Auto) 28 % (24-48) Monocytes (%) (Auto) 9 % (0-9) Eosinophils (%) (Auto) 3 % (0-3) Basophils (%) (Auto) 1 % (0-3) Neutrophils # (Auto) 3.2 x10^3/uL (1.8-7.7) Lymphocytes # (Auto) 1.5 x10^3/uL (1.0-4.8) Monocytes # (Auto) 0.5 x10^3/uL (0.0-1.1) Eosinophils # (Auto) 0.2 x10^3/uL (0.0-0.7) Basophils # (Auto) 0.0 x10^3/uL (0.0-0.2) Sodium Level 139 mmol/L (136-145) Potassium Level 4.3 mmol/L (3.5-5.1) Chloride Level 103 mmol/L (98-107) Carbon Dioxide Level 29 mmol/L (21-32) Anion Gap 7 (6-14) Blood Urea Nitrogen 15 mg/dL (7-20) Creatinine 1.0 mg/dL (0.6-1.0) Estimated GFR (Cockcroft-Gault) 58.5 BUN/Creatinine Ratio 15 (6-20) Glucose Level 109 mg/dL (70-99) Calcium Level 9.2 mg/dL (8.5-10.1) Total Bilirubin 1.6 mg/dL (0.2-1.0) Aspartate Amino Transf (AST/SGOT) 1587 U/L (15-37) Alanine Aminotransferase (ALT/SGPT) 1452 U/L (14-59) Alkaline Phosphatase 190 U/L (46-116) Troponin I High Sensitivity 5 ng/L (4-50) Total Protein 7.6 g/dL (6.4-8.2) Albumin 4.0 g/dL (3.4-5.0) Albumin/Globulin Ratio 1.1 (1.0-1.7) Lipase 9056 U/L (73-393) Urine Collection Type Unknown Urine Color (Auto) Yellow Urine Turbidity Hazy Urine pH (Auto) 6.5 (<5.0-8.0) Urine Specific Bassett 1.021 (1.000-1.030) Urine Protein (Auto) Negative mg/dL (Negative) Urine Glucose (Auto)(UA) Negative mg/dL (Negative) Urine Ketones (Auto) Negative mg/dL (Negative) Urine Blood (Auto) Negative (Negative) Urine Nitrite Negative (Negative) Urine Bilirubin (Auto) Negative (Negative) Urine Urobilinogen (Auto) 3 mg/dL (Normal) Urine Leukocyte Esterase (Auto) Negative (Negative) Urine RBC 0 /HPF (0-2) Urine WBC Occ /HPF (0-4) Urine Squamous Epithelial Cells Few /LPF Urine Amorphous Sediment Present /HPF Urine Bacteria Few /HPF (0-FEW) Urine Mucus Slight /LPF Images: Images PROCEDURE: CT ABD PELV W/ORAL&IV CONTRAST Exam: CT abdomen/pelvis with intravenous contrast Indication: Pancreatitis Comparison: CT abdomen pelvis 08/15/2018 Technique: Helical CT imaging performed of the abdomen and pelvis after the intravenous administration of 75 mL Omnipaque 300 contrast. Sagittal and coronal reformats were obtained. One or more of the following individualized dose reduction techniques were utilized for this examination: 1. Automated exposure control 2. Adjustment of the mA and/or kV according to patient size 3. Use of iterative reconstruction technique. Findings: Lower chest: Mild dependent atelectasis in the lungs. The heart is normal in size. Liver: The liver is normal in size. No focal liver lesion. Gallbladder/Biliary Tree: The gallbladder is mildly distended without obvious wall thickening or radiopaque cholelithiasis. Bile ducts are normal. Pancreas: Normal. Spleen: Normal. Adrenal Glands: Normal. Kidneys/Ureters/Bladder: Kidneys are normal in size and enhance symmetrically. No hydronephrosis. Ureters and bladder are normal Reproductive Organs: Uterus is anteverted. No adnexal mass. Stomach, small bowel, and colon: Stomach is normal. There is no small bowel obstruction. The appendix is normal. The colon is normal. Vasculature: No aortic aneurysm. Lymph Nodes: No lymphadenopathy. Peritoneum and retroperitoneum: No free fluid or free air. Bones: No acute osseous abnormality. Mild degenerative disc disease. Miscellaneous: None. IMPRESSION: 1. Mildly distended gallbladder. 2. Normal appearance of the pancreas. PROCEDURE: ABDOMEN LTD EXAM: ULTRASOUND ABDOMEN LIMITED CLINICAL HISTORY: Right upper quadrant abdominal pain COMPARISON: CT abdomen August 15, 2018 Findings: The pancreas and most of the aorta and IVC are obscured by bowel gas shadowing. Visualized hepatic IVC is normal. Normal liver echogenicity. No liver mass documented. There is patent hepatopedal portal vein blood flow. No gallstones. There is gallbladder sludge. Optical Advisor reports a positive sonographic Godinez sign. The office clerk assistant documents increased gallbladder wall thickness measuring 4 mm however on the saved images the wall thickness appears normal measuring less than 3 mm. No pericholecystic fluid evident. No biliary ductal dilation the common bile duct diameter is 5 mm which is normal. Right renal length 10.3 cm. No mass or hydronephrosis of the right kidney. Spleen and left kidney were not evaluated. IMPRESSION: Gallbladder sludge. No gallstones. There is a positive sonographic Godinez sign present, while no significant inflammatory changes of the gallbladder are evident sonographically, the positive Godinez's could indicate early changes of cholecystitis. This may be further assessed with hepatobiliary scan imaging. Assessment/Plan Assessment/Plan Acute abdominal pain with elevated liver enzymes suggestive of biliary obstruction, possible choledocholithiasis, possible acute cholecystitis Mild hyperbilirubinemia, conjugated versus not conjugated History of depression anxiety History of hypertension History of cervical cancer Admit to hospitalist service for further management GI consult Surgery consult Pending direct bilirubin Pending acute hepatitis panel Continue IV fluids Lovenox for DVT prophylaxis Protonix GI prophylaxis NPO CODE STATUS full Discussed with RN and SW Disposition inpatient management as above DPOA: Undesignated at this time Justifications for Admission Other Justification Gallstone pancreatitis THOM MITCHELL MD Oct 16, 2021 11:28
[2021-10-16 15:00] VITALS: BP 125/77
--- NOTE | 2021-10-16 15:16 | PDOC2 ---
CONSULT Date of Consult Date of Consult DATE: 10/16/21 TIME: 15:10 Reason for Consult Reason for Consult: gallstone pancreatitis, obstructive hepatitis Referring Physician Referring Physician: Dr Quinn Identification/Chief Complaint Chief Complaint epigastric abd pain Source Source: Chart review, Patient History of Present Illness Reason for Visit: 51 yo F with multiple episodes of epigastric abd pain over the last few weeks. This episode more severe. Presents to ER and does feel better today with reduction in pain. Past Medical History Cardiovascular: HTN Heme/Onc: Cancer Psych: Anxiety Renal/: Other (kidney stones, planning radiation treatment for cervical cancer) Past Surgical History Past Surgical History: Family History Family History: No Significant Social History <1 pack per day ALCOHOL: other (had two shots with her friend yesterday, otherwise doesn't drink at all) Drugs: Other (past use - never IVDU) Current Problem List Problem List Problems Medical Problems: (1) Choledocholithiasis with cholecystitis Status: Acute (2) Right upper quadrant abdominal pain Status: Acute Current Medications Current Medications Current Medications Sodium Chloride 1,000 ml @ 1,000 mls/hr 1X ONCE IV Last administered on 10/16/21at 05:26; Start 10/16/21 at 05:15; Stop 10/16/21 at 06:14; Status DC Ondansetron HCl (Zofran) 4 mg 1X ONCE IVP Last administered on 10/16/21at 05:26; Start 10/16/21 at 05:15; Stop 10/16/21 at 05:16; Status DC Ketorolac Tromethamine (Toradol 15mg Vial) 15 mg 1X ONCE IVP Last administered on 10/16/21at 05:26; Start 10/16/21 at 05:15; Stop 10/16/21 at 05:16; Status DC Morphine Sulfate (Morphine Sulfate) 4 mg 1X ONCE IVP Last administered on 10/16/21at 05:27; Start 10/16/21 at 05:15; Stop 10/16/21 at 05:16; Status DC Piperacillin Sod/ Tazobactam Sod 3.375 gm/Sodium Chloride 50 ml @ 100 mls/hr 1X ONCE IV Last administered on 10/16/21at 07:27; Start 10/16/21 at 07:00; Stop 10/16/21 at 07:29; Status DC Morphine Sulfate (Morphine Sulfate) 2 mg PRN Q2HR PRN IVP PAIN Last administered on 10/16/21at 07:46; Start 10/16/21 at 07:00; Stop 10/17/21 at 06:59 Iohexol (Omnipaque 240 Mg/ml) 50 ml 1X ONCE PO Last administered on 10/16/21at 08:15; Start 10/16/21 at 08:15; Stop 10/16/21 at 08:16; Status DC Iohexol (Omnipaque 300 Mg/ml) 75 ml 1X ONCE IV Last administered on 10/16/21at 08:15; Start 10/16/21 at 08:15; Stop 10/16/21 at 08:16; Status DC Info (CONTRAST GIVEN -- Rx MONITORING) 1 each PRN DAILY PRN MC SEE COMMENTS; Start 10/16/21 at 08:15; Stop 10/18/21 at 08:14 Sennosides (Senna) 17.2 mg PRN BID PRN PO CONSTIPATION; Start 10/16/21 at 09:00 Docusate Sodium (Colace) 100 mg PRN DAILY PRN PO HARD STOOLS; Start 10/16/21 at 09:00 Ondansetron HCl (Zofran) 4 mg PRN Q6HRS PRN IVP NAUSEA/VOMITING, 1st CHOICE; Start 10/16/21 at 09:00 Dextrose (Dextrose 50%-Water Syringe) 12.5 gm PRN Q15MIN PRN IV SEE COMMENTS; Start 10/16/21 at 09:00 Sodium Chloride 1,000 ml @ 100 mls/hr Q10H IV Last administered on 10/16/21at 09:33; Start 10/16/21 at 09:00 Acetaminophen (Tylenol) 650 mg PRN Q4HRS PRN PO TEMP OVER 100.4F OR MILD PAIN; Start 10/16/21 at 09:00 Lorazepam (Ativan) 0.5 mg PRN Q6HRS PRN PO ANXIETY / AGITATION; Start 10/16/21 at 09:00 Lorazepam (Ativan Inj) 0.25 mg PRN Q4HRS PRN IV ANXIETY / AGITATION; Start 10/16/21 at 09:00 Enoxaparin Sodium (Lovenox 40mg Syringe) 40 mg Q24H SQ Last administered on 10/16/21at 09:28; Start 10/16/21 at 10:00 Oxycodone/ Acetaminophen (Percocet 5/325) 1 tab PRN Q4HRS PRN PO MILD PAIN, 1ST CHOICE; Start 10/16/21 at 09:00 Oxycodone/ Acetaminophen (Percocet 5/325) 2 tab PRN Q4HRS PRN PO MODERATE PAIN, SEVERE PAIN; Start 10/16/21 at 09:00 Morphine Sulfate (Morphine Sulfate) 1 mg PRN Q1HR PRN IV PAIN; Start 10/16/21 at 09:00 Morphine Sulfate (Morphine Sulfate) 2 mg PRN Q2HR PRN IVP SEVERE PAIN 7-10; Start 10/16/21 at 09:00; Stop 10/17/21 at 08:59 Prochlorperazine Edisylate (Compazine) 10 mg PRN Q6HRS PRN IV NAUSEA/VOMITING, 2nd CHOICE; Start 10/16/21 at 09:00 Diphenhydramine HCl (Benadryl) 25 mg PRN Q6HRS PRN IVP ITCHING; Start 10/16/21 at 09:00 Diphenhydramine HCl (Benadryl) 25 mg PRN Q6HRS PRN PO ITCHING; Start 10/16/21 at 09:00 Diphenhydramine HCl (Benadryl) 25 mg PRN QHS PRN PO INSOMNIA, 1st CHOICE; Start 10/16/21 at 09:00 Zolpidem Tartrate (Ambien) 2.5 mg PRN QHS PRN PO INSOMNIA, 2nd CHOICE; Start 10/16/21 at 09:00 Pantoprazole Sodium (PROTONIX VIAL for IV PUSH) 40 mg DAILYAC IVP Last administered on 10/16/21at 10:56; Start 10/16/21 at 11:30 Active Scripts Active Reported Clobetasol Propionate 15 Gm Cream..g. 1 Avni TP QODAY Citalopram Hbr (Citalopram Hydrobromide) 40 Mg Tablet 1 Tab PO DAILY Pravastatin Sodium 20 Mg Tablet 1 Tab PO DAILY Lisinopril 20 Mg Tablet 1 Tab PO DAILY Allergies Allergies: Coded Allergies: No Known Drug Allergies (Unverified , 10/01/13) ROS Gastrointestinal: Yes Nausea, Yes Abdominal Pain Physical Exam General: Alert, Oriented X3, Cooperative, mild distress HEENT: Atraumatic Lungs: Normal air movement Abdomen: Soft, Other (TTP RUQ and epigastric) Extremities: No clubbing, No cyanosis Skin: No rashes, No breakdown Neuro: Normal speech, Sensation intact Psych/Mental Status: Mental status NL, Mood NL Vitals VITALS Vital Signs Date Time Temp Pulse Resp B/P (MAP) Pulse Ox O2 Delivery O2 Flow Rate FiO2 10/16/21 11:00 97.4 70 16 118/77 (91) 93 Room Air 97.4 Labs Labs Laboratory Tests Test 10/16/21 05:22 10/16/21 06:35 White Blood Count 5.4 x10^3/uL (4.0-11.0) Red Blood Count 4.84 x10^6/uL (3.50-5.40) Hemoglobin 14.6 g/dL (12.0-15.5) Hematocrit 43.3 % (36.0-47.0) Mean Corpuscular Volume 89 fL (79-100) Mean Corpuscular Hemoglobin 30 pg (25-35) Mean Corpuscular Hemoglobin Concent 34 g/dL (31-37) Red Cell Distribution Width 14.7 % (11.5-14.5) Platelet Count 303 x10^3/uL (140-400) Neutrophils (%) (Auto) 60 % (31-73) Lymphocytes (%) (Auto) 28 % (24-48) Monocytes (%) (Auto) 9 % (0-9) Eosinophils (%) (Auto) 3 % (0-3) Basophils (%) (Auto) 1 % (0-3) Neutrophils # (Auto) 3.2 x10^3/uL (1.8-7.7) Lymphocytes # (Auto) 1.5 x10^3/uL (1.0-4.8) Monocytes # (Auto) 0.5 x10^3/uL (0.0-1.1) Eosinophils # (Auto) 0.2 x10^3/uL (0.0-0.7) Basophils # (Auto) 0.0 x10^3/uL (0.0-0.2) Sodium Level 139 mmol/L (136-145) Potassium Level 4.3 mmol/L (3.5-5.1) Chloride Level 103 mmol/L (98-107) Carbon Dioxide Level 29 mmol/L (21-32) Anion Gap 7 (6-14) Blood Urea Nitrogen 15 mg/dL (7-20) Creatinine 1.0 mg/dL (0.6-1.0) Estimated GFR (Cockcroft-Gault) 58.5 BUN/Creatinine Ratio 15 (6-20) Glucose Level 109 mg/dL (70-99) Calcium Level 9.2 mg/dL (8.5-10.1) Total Bilirubin 1.6 mg/dL (0.2-1.0) Direct Bilirubin 1.1 mg/dL (0.0-0.2) Aspartate Amino Transf (AST/SGOT) 1587 U/L (15-37) Alanine Aminotransferase (ALT/SGPT) 1452 U/L (14-59) Alkaline Phosphatase 190 U/L (46-116) Troponin I High Sensitivity 5 ng/L (4-50) Total Protein 7.6 g/dL (6.4-8.2) Albumin 4.0 g/dL (3.4-5.0) Albumin/Globulin Ratio 1.1 (1.0-1.7) Lipase 9056 U/L (73-393) Hepatitis A IgM Antibody Nonreactive (Nonreactive) Hepatitis B Surface Antigen Nonreactive (Nonreactive) Hepatitis B Core IgM Antibody Nonreactive (Nonreactive) Hepatitis C IgG Antibody Nonreactive (Nonreactive) Urine Collection Type Unknown Urine Color (Auto) Yellow Urine Turbidity Hazy Urine pH (Auto) 6.5 (<5.0-8.0) Urine Specific [place] 1.021 (1.000-1.030) Urine Protein (Auto) Negative mg/dL (Negative) Urine Glucose (Auto)(UA) Negative mg/dL (Negative) Urine Ketones (Auto) Negative mg/dL (Negative) Urine Blood (Auto) Negative (Negative) Urine Nitrite Negative (Negative) Urine Bilirubin (Auto) Negative (Negative) Urine Urobilinogen (Auto) 3 mg/dL (Normal) Urine Leukocyte Esterase (Auto) Negative (Negative) Urine RBC 0 /HPF (0-2) Urine WBC Occ /HPF (0-4) Urine Squamous Epithelial Cells Few /LPF Urine Amorphous Sediment Present /HPF Urine Bacteria Few /HPF (0-FEW) Urine Mucus Slight /LPF Laboratory Tests Test 10/16/21 05:22 10/16/21 06:35 White Blood Count 5.4 x10^3/uL (4.0-11.0) Red Blood Count 4.84 x10^6/uL (3.50-5.40) Hemoglobin 14.6 g/dL (12.0-15.5) Hematocrit 43.3 % (36.0-47.0) Mean Corpuscular Volume 89 fL (79-100) Mean Corpuscular Hemoglobin 30 pg (25-35) Mean Corpuscular Hemoglobin Concent 34 g/dL (31-37) Red Cell Distribution Width 14.7 % (11.5-14.5) Platelet Count 303 x10^3/uL (140-400) Neutrophils (%) (Auto) 60 % (31-73) Lymphocytes (%) (Auto) 28 % (24-48) Monocytes (%) (Auto) 9 % (0-9) Eosinophils (%) (Auto) 3 % (0-3) Basophils (%) (Auto) 1 % (0-3) Neutrophils # (Auto) 3.2 x10^3/uL (1.8-7.7) Lymphocytes # (Auto) 1.5 x10^3/uL (1.0-4.8) Monocytes # (Auto) 0.5 x10^3/uL (0.0-1.1) Eosinophils # (Auto) 0.2 x10^3/uL (0.0-0.7) Basophils # (Auto) 0.0 x10^3/uL (0.0-0.2) Sodium Level 139 mmol/L (136-145) Potassium Level 4.3 mmol/L (3.5-5.1) Chloride Level 103 mmol/L (98-107) Carbon Dioxide Level 29 mmol/L (21-32) Anion Gap 7 (6-14) Blood Urea Nitrogen 15 mg/dL (7-20) Creatinine 1.0 mg/dL (0.6-1.0) Estimated GFR (Cockcroft-Gault) 58.5 BUN/Creatinine Ratio 15 (6-20) Glucose Level 109 mg/dL (70-99) Calcium Level 9.2 mg/dL (8.5-10.1) Total Bilirubin 1.6 mg/dL (0.2-1.0) Direct Bilirubin 1.1 mg/dL (0.0-0.2) Aspartate Amino Transf (AST/SGOT) 1587 U/L (15-37) Alanine Aminotransferase (ALT/SGPT) 1452 U/L (14-59) Alkaline Phosphatase 190 U/L (46-116) Troponin I High Sensitivity 5 ng/L (4-50) Total Protein 7.6 g/dL (6.4-8.2) Albumin 4.0 g/dL (3.4-5.0) Albumin/Globulin Ratio 1.1 (1.0-1.7) Lipase 9056 U/L (73-393) Hepatitis A IgM Antibody Nonreactive (Nonreactive) Hepatitis B Surface Antigen Nonreactive (Nonreactive) Hepatitis B Core IgM Antibody Nonreactive (Nonreactive) Hepatitis C IgG Antibody Nonreactive (Nonreactive) Urine Collection Type Unknown Urine Color (Auto) Yellow Urine Turbidity Hazy Urine pH (Auto) 6.5 (<5.0-8.0) Urine Specific [place] 1.021 (1.000-1.030) Urine Protein (Auto) Negative mg/dL (Negative) Urine Glucose (Auto)(UA) Negative mg/dL (Negative) Urine Ketones (Auto) Negative mg/dL (Negative) Urine Blood (Auto) Negative (Negative) Urine Nitrite Negative (Negative) Urine Bilirubin (Auto) Negative (Negative) Urine Urobilinogen (Auto) 3 mg/dL (Normal) Urine Leukocyte Esterase (Auto) Negative (Negative) Urine RBC 0 /HPF (0-2) Urine WBC Occ /HPF (0-4) Urine Squamous Epithelial Cells Few /LPF Urine Amorphous Sediment Present /HPF Urine Bacteria Few /HPF (0-FEW) Urine Mucus Slight /LPF Images Images US with gallbladder distention and sludge, CT without obvious pancreatitis Assessment/Plan Assessment/Plan gallstone pancreatitis appreciate GI agree with bowel rest and supportive care plan laparoscopic versus open cholecystectomy with cholangiogram, pending improvement in pain and pancreatic enzymes. Thanks for consult! CHARLES LEE MD Oct 16, 2021 15:16
[2021-10-16 19:00] VITALS: BP 142/94
[2021-10-16] MEDS: diphenhydrAMINE HCL 25 MG CAPSULE PO PRN (20:12)
[2021-10-16] MEDS: oxyCODONE/APAP 5/325 1 TAB TABLET PO PRN (20:12)
[2021-10-16 23:00] VITALS: BP 137/54
[2021-10-17 03:10] VITALS: BP 132/91
[2021-10-17 05:37] LABS: BASO % 1 % (0-3); EOS # 0.2 x10^3/uL (0.0-0.7); EOS % 5 % (0-3); HEMATOCRIT 37.8 % (36.0-47.0); HEMOGLOBIN 12.7 g/dL (12.0-15.5); LYMPH # 2.3 x10^3/uL (1.0-4.8); LYMPH % 58 % (24-48); MEAN CORPUSCULAR HEMOGLOBIN 31 pg (25-35); MEAN CORPUSCULAR HGB CONC 34 g/dL (31-37); MEAN CORPUSCULAR VOLUME 91 fL (79-100); MONO # 0.3 x10^3/uL (0.0-1.1); MONO % 7 % (0-9); NEUT # 1.2 x10^3/uL (1.8-7.7); NEUT % 30 % (31-73); PLATELET COUNT 238 x10^3/uL (140-400); RED BLOOD COUNT 4.15 x10^6/uL (3.50-5.40); RED CELL DISTRIBUTION WIDTH 14.6 % (11.5-14.5); WHITE BLOOD COUNT 3.9 x10^3/uL (4.0-11.0)
[2021-10-17] MEDS: IV NORMAL SALINE 1000ML BAG 1,000 ML IV SCH ×3 (05:37→21:20)
[2021-10-17 06:28] LABS: CALCIUM 8.1 mg/dL (8.5-10.1); CREATININE 0.9 mg/dL (0.6-1.0); MAGNESIUM 1.9 mg/dL (1.8-2.4); PHOSPHORUS 3.4 mg/dL (2.6-4.7); POTASSIUM 4.2 mmol/L (3.5-5.1); TOTAL BILIRUBIN 1.2 mg/dL (0.2-1.0)
[2021-10-17 06:38] LABS: DIRECT BILIRUBIN 0.6 mg/dL (0.0-0.2)
[2021-10-17 07:00] VITALS: BP 132/76
[2021-10-17] MEDS: PANTOPRAZOLE IV PUSH 40 MG VIAL. IVP SCH (08:15)
--- NOTE | 2021-10-17 09:51 | PDOC ---
SURGICAL PROGRESS NOTE DATE: 10/17/21 TIME: 09:50 Subjective Pt with c/o low back pain, coming around to front, no n/V, positive hunger Vital Signs Vital Signs Date Time Temp Pulse Resp B/P (MAP) Pulse Ox O2 Delivery O2 Flow Rate FiO2 10/17/21 03:10 97.7 88 14 132/91 (105) 97 Room Air 97.7 I&O Intake and Output 10/17/21 07:00 Intake Total 1950 ml Balance 1950 ml Intake Oral 0 ml IV Total 1950 ml # Voids 4 General: Alert, Oriented X3, Cooperative, mild distress Abdomen: Soft, No tenderness Labs Laboratory Tests Test 10/16/21 05:22 10/16/21 06:35 10/17/21 03:45 White Blood Count 5.4 x10^3/uL (4.0-11.0) 3.9 x10^3/uL (4.0-11.0) Red Blood Count 4.84 x10^6/uL (3.50-5.40) 4.15 x10^6/uL (3.50-5.40) Hemoglobin 14.6 g/dL (12.0-15.5) 12.7 g/dL (12.0-15.5) Hematocrit 43.3 % (36.0-47.0) 37.8 % (36.0-47.0) Mean Corpuscular Volume 89 fL (79-100) 91 fL (79-100) Mean Corpuscular Hemoglobin 30 pg (25-35) 31 pg (25-35) Mean Corpuscular Hemoglobin Concent 34 g/dL (31-37) 34 g/dL (31-37) Red Cell Distribution Width 14.7 % (11.5-14.5) 14.6 % (11.5-14.5) Platelet Count 303 x10^3/uL (140-400) 238 x10^3/uL (140-400) Neutrophils (%) (Auto) 60 % (31-73) 30 % (31-73) Lymphocytes (%) (Auto) 28 % (24-48) 58 % (24-48) Monocytes (%) (Auto) 9 % (0-9) 7 % (0-9) Eosinophils (%) (Auto) 3 % (0-3) 5 % (0-3) Basophils (%) (Auto) 1 % (0-3) 1 % (0-3) Neutrophils # (Auto) 3.2 x10^3/uL (1.8-7.7) 1.2 x10^3/uL (1.8-7.7) Lymphocytes # (Auto) 1.5 x10^3/uL (1.0-4.8) 2.3 x10^3/uL (1.0-4.8) Monocytes # (Auto) 0.5 x10^3/uL (0.0-1.1) 0.3 x10^3/uL (0.0-1.1) Eosinophils # (Auto) 0.2 x10^3/uL (0.0-0.7) 0.2 x10^3/uL (0.0-0.7) Basophils # (Auto) 0.0 x10^3/uL (0.0-0.2) 0.0 x10^3/uL (0.0-0.2) Sodium Level 139 mmol/L (136-145) 138 mmol/L (136-145) Potassium Level 4.3 mmol/L (3.5-5.1) 4.2 mmol/L (3.5-5.1) Chloride Level 103 mmol/L (98-107) 105 mmol/L (98-107) Carbon Dioxide Level 29 mmol/L (21-32) 26 mmol/L (21-32) Anion Gap 7 (6-14) 7 (6-14) Blood Urea Nitrogen 15 mg/dL (7-20) 10 mg/dL (7-20) Creatinine 1.0 mg/dL (0.6-1.0) 0.9 mg/dL (0.6-1.0) Estimated GFR (Cockcroft-Gault) 58.5 66.0 BUN/Creatinine Ratio 15 (6-20) 11 (6-20) Glucose Level 109 mg/dL (70-99) 71 mg/dL (70-99) Calcium Level 9.2 mg/dL (8.5-10.1) 8.1 mg/dL (8.5-10.1) Total Bilirubin 1.6 mg/dL (0.2-1.0) 1.2 mg/dL (0.2-1.0) Direct Bilirubin 1.1 mg/dL (0.0-0.2) 0.6 mg/dL (0.0-0.2) Aspartate Amino Transf (AST/SGOT) 1587 U/L (15-37) 524 U/L (15-37) Alanine Aminotransferase (ALT/SGPT) 1452 U/L (14-59) 1130 U/L (14-59) Alkaline Phosphatase 190 U/L (46-116) 197 U/L (46-116) Troponin I High Sensitivity 5 ng/L (4-50) Total Protein 7.6 g/dL (6.4-8.2) 6.0 g/dL (6.4-8.2) Albumin 4.0 g/dL (3.4-5.0) 3.0 g/dL (3.4-5.0) Albumin/Globulin Ratio 1.1 (1.0-1.7) 1.0 (1.0-1.7) Lipase 9056 U/L (73-393) Hepatitis A IgM Antibody Nonreactive (Nonreactive) Hepatitis B Surface Antigen Nonreactive (Nonreactive) Hepatitis B Core IgM Antibody Nonreactive (Nonreactive) Hepatitis C IgG Antibody Nonreactive (Nonreactive) Urine Collection Type Unknown Urine Color (Auto) Yellow Urine Turbidity Hazy Urine pH (Auto) 6.5 (<5.0-8.0) Urine Specific [place] 1.021 (1.000-1.030) Urine Protein (Auto) Negative mg/dL (Negative) Urine Glucose (Auto)(UA) Negative mg/dL (Negative) Urine Ketones (Auto) Negative mg/dL (Negative) Urine Blood (Auto) Negative (Negative) Urine Nitrite Negative (Negative) Urine Bilirubin (Auto) Negative (Negative) Urine Urobilinogen (Auto) 3 mg/dL (Normal) Urine Leukocyte Esterase (Auto) Negative (Negative) Urine RBC 0 /HPF (0-2) Urine WBC Occ /HPF (0-4) Urine Squamous Epithelial Cells Few /LPF Urine Amorphous Sediment Present /HPF Urine Bacteria Few /HPF (0-FEW) Urine Mucus Slight /LPF Phosphorus Level 3.4 mg/dL (2.6-4.7) Magnesium Level 1.9 mg/dL (1.8-2.4) Laboratory Tests Test 10/17/21 03:45 White Blood Count 3.9 x10^3/uL (4.0-11.0) Red Blood Count 4.15 x10^6/uL (3.50-5.40) Hemoglobin 12.7 g/dL (12.0-15.5) Hematocrit 37.8 % (36.0-47.0) Mean Corpuscular Volume 91 fL (79-100) Mean Corpuscular Hemoglobin 31 pg (25-35) Mean Corpuscular Hemoglobin Concent 34 g/dL (31-37) Red Cell Distribution Width 14.6 % (11.5-14.5) Platelet Count 238 x10^3/uL (140-400) Neutrophils (%) (Auto) 30 % (31-73) Lymphocytes (%) (Auto) 58 % (24-48) Monocytes (%) (Auto) 7 % (0-9) Eosinophils (%) (Auto) 5 % (0-3) Basophils (%) (Auto) 1 % (0-3) Neutrophils # (Auto) 1.2 x10^3/uL (1.8-7.7) Lymphocytes # (Auto) 2.3 x10^3/uL (1.0-4.8) Monocytes # (Auto) 0.3 x10^3/uL (0.0-1.1) Eosinophils # (Auto) 0.2 x10^3/uL (0.0-0.7) Basophils # (Auto) 0.0 x10^3/uL (0.0-0.2) Sodium Level 138 mmol/L (136-145) Potassium Level 4.2 mmol/L (3.5-5.1) Chloride Level 105 mmol/L (98-107) Carbon Dioxide Level 26 mmol/L (21-32) Anion Gap 7 (6-14) Blood Urea Nitrogen 10 mg/dL (7-20) Creatinine 0.9 mg/dL (0.6-1.0) Estimated GFR (Cockcroft-Gault) 66.0 BUN/Creatinine Ratio 11 (6-20) Glucose Level 71 mg/dL (70-99) Calcium Level 8.1 mg/dL (8.5-10.1) Phosphorus Level 3.4 mg/dL (2.6-4.7) Magnesium Level 1.9 mg/dL (1.8-2.4) Total Bilirubin 1.2 mg/dL (0.2-1.0) Direct Bilirubin 0.6 mg/dL (0.0-0.2) Aspartate Amino Transf (AST/SGOT) 524 U/L (15-37) Alanine Aminotransferase (ALT/SGPT) 1130 U/L (14-59) Alkaline Phosphatase 197 U/L (46-116) Total Protein 6.0 g/dL (6.4-8.2) Albumin 3.0 g/dL (3.4-5.0) Albumin/Globulin Ratio 1.0 (1.0-1.7) Problem List Problems Medical Problems: (1) Choledocholithiasis with cholecystitis Status: Acute (2) Right upper quadrant abdominal pain Status: Acute Assessment/Plan gallstone pancreatitis appears improved overall will try clears will plan laparoscopic versus open cholecystectomy with cholangiogram 10/18 Justicifation of Admission Dx: Justifications for Admission: Justification of Admission Dx: Yes Sepsis: Dehydration CHARLES LEE MD Oct 17, 2021 09:51
[2021-10-17] MEDS: ACETAMINOPHEN 325 MG TABLET. PO PRN (09:58)
[2021-10-17] MEDS: ENOXAPARIN 40 MG/0.4 ML SYRINGE. SQ SCH (10:00)
--- NOTE | 2021-10-17 10:22 | PDOC ---
Date of Service: DATE: 10/17/21 TIME: 10:19 Subjective: Subjective: Has a headache, wants ice chips. Abd pain is better. Objective: Vital Signs: Vital Signs Date Time Temp Pulse Resp B/P (MAP) Pulse Ox O2 Delivery O2 Flow Rate FiO2 10/17/21 08:15 Room Air 10/17/21 07:00 97.8 64 18 132/76 (94) 92 97.8 Labs: Laboratory Tests Test 10/17/21 03:45 White Blood Count 3.9 x10^3/uL Red Blood Count 4.15 x10^6/uL Hemoglobin 12.7 g/dL Hematocrit 37.8 % Mean Corpuscular Volume 91 fL Mean Corpuscular Hemoglobin 31 pg Mean Corpuscular Hemoglobin Concent 34 g/dL Red Cell Distribution Width 14.6 % Platelet Count 238 x10^3/uL Neutrophils (%) (Auto) 30 % Lymphocytes (%) (Auto) 58 % Monocytes (%) (Auto) 7 % Eosinophils (%) (Auto) 5 % Basophils (%) (Auto) 1 % Neutrophils # (Auto) 1.2 x10^3/uL Lymphocytes # (Auto) 2.3 x10^3/uL Monocytes # (Auto) 0.3 x10^3/uL Eosinophils # (Auto) 0.2 x10^3/uL Basophils # (Auto) 0.0 x10^3/uL Sodium Level 138 mmol/L Potassium Level 4.2 mmol/L Chloride Level 105 mmol/L Carbon Dioxide Level 26 mmol/L Anion Gap 7 Blood Urea Nitrogen 10 mg/dL Creatinine 0.9 mg/dL Estimated GFR (Cockcroft-Gault) 66.0 BUN/Creatinine Ratio 11 Glucose Level 71 mg/dL Calcium Level 8.1 mg/dL Phosphorus Level 3.4 mg/dL Magnesium Level 1.9 mg/dL Total Bilirubin 1.2 mg/dL Direct Bilirubin 0.6 mg/dL Aspartate Amino Transf (AST/SGOT) 524 U/L Alanine Aminotransferase (ALT/SGPT) 1130 U/L Alkaline Phosphatase 197 U/L Total Protein 6.0 g/dL Albumin 3.0 g/dL Albumin/Globulin Ratio 1.0 PE: GEN: NAD LUNGS: CTAB HEART: RRR ABD: quiet, soft, non-tender NEURO/PSYCH: A & O 3 A/P: Pancreatitis w/ GB sludge Elevated LFTs - favorable trend (though Alk Phos a smidge up), Hep panel negative, normal CBD Headache -- Okay for ice chips per GI - defer to surgery. Looks like plans for cholecystectomy/IOC tomorrow. Monitor LFTs. Justicifation of Admission Dx: Justifications for Admission: Justification of Admission Dx: Yes Sepsis: Dehydration CORBY CORDON Oct 17, 2021 10:22
--- NOTE | 2021-10-17 10:32 | EKG ---
[facility] [address] [place] [address] Test Date: 2021-10-16 Test Time: 05:16:24 Pat Name: ELLIE MYERS Department: Room: Gender: F Front Office Representative: : 1970 Requested By: PATRICIA BALTAZAR Order Number: [id number] Reading MD: Measurements Intervals [place] Rate: 81 P: 35 MT: 136 QRS: 44 QRSD: 76 T: 33 QT: 356 QTc: 414 Interpretive Statements SINUS RHYTHM NORMAL ECG RI6.02 No previous ECG available for comparison
[2021-10-17 11:00] VITALS: BP 156/94
--- NOTE | 2021-10-17 11:22 | PDOC ---
[facility] [facility] PROGRESS NOTE Date of Service DOS: DATE: 10/17/21 TIME: 11:20 Chief Complaint Chief Complaint Assessment/Plan Acute abdominal pain with elevated liver enzymes suggestive of biliary obstruction, possible choledocholithiasis, possible acute cholecystitis Mild hyperbilirubinemia, conjugated versus not conjugated History of depression anxiety History of hypertension History of cervical cancer Admit to hospitalist service for further management GI consult Surgery consult Pending direct bilirubin Pending acute hepatitis panel Continue IV fluids Lovenox for DVT prophylaxis Protonix GI prophylaxis NPO CODE STATUS full Discussed with RN and SW Disposition inpatient management as above DPOA: Undesignated at this time History of Present Illness History of Present Illness 51-year-old female with past medical history of depression/anxiety, hypertension and kidney stones and cervical cancer who is pending treatment for that comes in with right upper quadrant pain that radiates to the substernal region and lower abdominal region. She does endorse nausea a few hours before arrival. Apparently this is the third episode of similar abdominal pain for the past 2 weeks. She has never had pain like this before that. Pain is 6 out of 10. Denies fevers, shortness of breath, cough, upper respiratory symptoms, hematuria, constipation, diarrhea, oliguria or extremity pain. 10/17/2021 No acute events overnight. Patient seen examined bedside. No concerns from nursing. Pain is well controlled. On-call to the OR today for laparoscopic cholecystectomy. Vitals/I&O Vitals/I&O: Vital Signs Date Time Temp Pulse Resp B/P (MAP) Pulse Ox O2 Delivery O2 Flow Rate FiO2 10/17/21 11:00 98.4 87 16 156/94 (114) 97 Room Air 98.4 I & O 10/16/21 10/16/21 10/17/21 15:00 23:00 07:00 Intake Total 1000 ml 950 ml Balance 1000 ml 950 ml Physical Exam General: Alert, Oriented X3, Cooperative, mild distress Abdomen: Soft, No tenderness Extremities: No clubbing, No cyanosis Skin: No rashes, No breakdown Labs Labs: Laboratory Tests Test 10/17/21 03:45 White Blood Count 3.9 x10^3/uL (4.0-11.0) Red Blood Count 4.15 x10^6/uL (3.50-5.40) Hemoglobin 12.7 g/dL (12.0-15.5) Hematocrit 37.8 % (36.0-47.0) Mean Corpuscular Volume 91 fL (79-100) Mean Corpuscular Hemoglobin 31 pg (25-35) Mean Corpuscular Hemoglobin Concent 34 g/dL (31-37) Red Cell Distribution Width 14.6 % (11.5-14.5) Platelet Count 238 x10^3/uL (140-400) Neutrophils (%) (Auto) 30 % (31-73) Lymphocytes (%) (Auto) 58 % (24-48) Monocytes (%) (Auto) 7 % (0-9) Eosinophils (%) (Auto) 5 % (0-3) Basophils (%) (Auto) 1 % (0-3) Neutrophils # (Auto) 1.2 x10^3/uL (1.8-7.7) Lymphocytes # (Auto) 2.3 x10^3/uL (1.0-4.8) Monocytes # (Auto) 0.3 x10^3/uL (0.0-1.1) Eosinophils # (Auto) 0.2 x10^3/uL (0.0-0.7) Basophils # (Auto) 0.0 x10^3/uL (0.0-0.2) Sodium Level 138 mmol/L (136-145) Potassium Level 4.2 mmol/L (3.5-5.1) Chloride Level 105 mmol/L (98-107) Carbon Dioxide Level 26 mmol/L (21-32) Anion Gap 7 (6-14) Blood Urea Nitrogen 10 mg/dL (7-20) Creatinine 0.9 mg/dL (0.6-1.0) Estimated GFR (Cockcroft-Gault) 66.0 BUN/Creatinine Ratio 11 (6-20) Glucose Level 71 mg/dL (70-99) Calcium Level 8.1 mg/dL (8.5-10.1) Phosphorus Level 3.4 mg/dL (2.6-4.7) Magnesium Level 1.9 mg/dL (1.8-2.4) Total Bilirubin 1.2 mg/dL (0.2-1.0) Direct Bilirubin 0.6 mg/dL (0.0-0.2) Aspartate Amino Transf (AST/SGOT) 524 U/L (15-37) Alanine Aminotransferase (ALT/SGPT) 1130 U/L (14-59) Alkaline Phosphatase 197 U/L (46-116) Total Protein 6.0 g/dL (6.4-8.2) Albumin 3.0 g/dL (3.4-5.0) Albumin/Globulin Ratio 1.0 (1.0-1.7) Assessment and Plan Assessmemt and Plan Problems Medical Problems: (1) Choledocholithiasis with cholecystitis Status: Acute (2) Right upper quadrant abdominal pain Status: Acute Comment Review of Relevant I have reviewed the following items devendra (where applicable) has been applied. Medications: Current Medications Medications (Trade) Dose Ordered Sig/Sonny Route PRN Reason Start Time Stop Time Status Last Admin Dose Admin Pantoprazole Sodium (PROTONIX VIAL for IV PUSH) 40 mg DAILYAC IVP 10/16/21 11:30 10/17/21 08:15 Justifications for Admission Other Justification Gallstone pancreatitis THOM MITCHELL MD Oct 17, 2021 11:22
[2021-10-17 15:00] VITALS: BP 147/90
[2021-10-17 19:00] VITALS: BP 135/72
[2021-10-17 23:00] VITALS: BP 138/80
[2021-10-18 03:00] VITALS: BP 151/81
[2021-10-18 05:57] LABS: BASO % 1 % (0-3); EOS # 0.2 x10^3/uL (0.0-0.7); EOS % 4 % (0-3); HEMATOCRIT 38.8 % (36.0-47.0); HEMOGLOBIN 13.5 g/dL (12.0-15.5); LYMPH # 2.2 x10^3/uL (1.0-4.8); LYMPH % 46 % (24-48); MEAN CORPUSCULAR HEMOGLOBIN 31 pg (25-35); MEAN CORPUSCULAR HGB CONC 35 g/dL (31-37); MEAN CORPUSCULAR VOLUME 89 fL (79-100); MONO # 0.4 x10^3/uL (0.0-1.1); MONO % 8 % (0-9); NEUT # 2.1 x10^3/uL (1.8-7.7); NEUT % 42 % (31-73); PLATELET COUNT 250 x10^3/uL (140-400); RED BLOOD COUNT 4.34 x10^6/uL (3.50-5.40); RED CELL DISTRIBUTION WIDTH 14.5 % (11.5-14.5); WHITE BLOOD COUNT 4.9 x10^3/uL (4.0-11.0)
[2021-10-18] MEDS ORDERED: fentaNYL PF VIAL 100 MCG/2 ML VIAL IVP PRN ×2 (06:00)
[2021-10-18] MEDS ORDERED: HEPARIN 1,000 UNIT in IV NORMAL SALINE 1,000 ML for SURG PERIOP IRR ONE (06:00)
[2021-10-18] MEDS ORDERED: HYDROmorphone 2 MG/ML INJ. IVP PRN (06:00)
[2021-10-18] MEDS ORDERED: IV RINGERS,LACTATED 1000ML 1,000 ML IV SCH (06:00)
[2021-10-18] MEDS ORDERED: MORPHINE SULFATE 2 MG/ML INJ. IVP PRN (06:00)
[2021-10-18 06:02] LABS: CALCIUM 8.9 mg/dL (8.5-10.1); CREATININE 0.7 mg/dL (0.6-1.0); GFR 88.2; MAGNESIUM 2.1 mg/dL (1.8-2.4); POTASSIUM 3.9 mmol/L (3.5-5.1)
--- NOTE | 2021-10-18 06:17 | NUR ---
IV restarted left hand by BRENTON Randall. IVF resumed. Has been NPO since OK. States "I can't wait to go home." Has slept most of the noc.
[2021-10-18 06:45] LABS: DIRECT BILIRUBIN 0.2 mg/dL (0.0-0.2); TOTAL BILIRUBIN 0.6 mg/dL (0.2-1.0); TOTAL PROTEIN 6.1 g/dL (6.4-8.2)
[2021-10-18 07:00] VITALS: BP 136/77
[2021-10-18] MEDS: PANTOPRAZOLE IV PUSH 40 MG VIAL. IVP SCH (07:48)
[2021-10-18] MEDS ORDERED: SURGICEL HEMOSTAT 4X8 EACH. ONE (09:01)
[2021-10-18] MEDS ORDERED: BUPIVACAINE-EPI 0.5% 30 ML VIAL KIT. ONE (09:01)
[2021-10-18] MEDS ORDERED: BISACODYL 10 MG SUPP.RECT. ONE (09:01)
[2021-10-18] MEDS ORDERED: IOHEXOL 300 MG/ML 50 ML VIAL. ONE (09:01)
[2021-10-18] MEDS: ENOXAPARIN 40 MG/0.4 ML SYRINGE. SQ SCH (10:00)
--- NOTE | 2021-10-18 10:55 | PDOC ---
Date of Service: DATE: 10/18/21 TIME: 10:52 Subjective: Subjective: Says she doesn't want to have to do the surgery because she's heard some things about people who have had it "like the smell you have afterwards." Objective: Vital Signs: Vital Signs Date Time Temp Pulse Resp B/P (MAP) Pulse Ox O2 Delivery O2 Flow Rate FiO2 10/18/21 08:12 Room Air 10/18/21 07:00 98.4 78 18 136/77 (96) 92 98.4 Labs: Laboratory Tests Test 10/18/21 04:15 10/18/21 08:45 White Blood Count 4.9 x10^3/uL Red Blood Count 4.34 x10^6/uL Hemoglobin 13.5 g/dL Hematocrit 38.8 % Mean Corpuscular Volume 89 fL Mean Corpuscular Hemoglobin 31 pg Mean Corpuscular Hemoglobin Concent 35 g/dL Red Cell Distribution Width 14.5 % Platelet Count 250 x10^3/uL Neutrophils (%) (Auto) 42 % Lymphocytes (%) (Auto) 46 % Monocytes (%) (Auto) 8 % Eosinophils (%) (Auto) 4 % Basophils (%) (Auto) 1 % Neutrophils # (Auto) 2.1 x10^3/uL Lymphocytes # (Auto) 2.2 x10^3/uL Monocytes # (Auto) 0.4 x10^3/uL Eosinophils # (Auto) 0.2 x10^3/uL Basophils # (Auto) 0.0 x10^3/uL Sodium Level 140 mmol/L Potassium Level 3.9 mmol/L Chloride Level 105 mmol/L Carbon Dioxide Level 26 mmol/L Anion Gap 9 Blood Urea Nitrogen 8 mg/dL Creatinine 0.7 mg/dL Estimated GFR (Cockcroft-Gault) 88.2 Glucose Level 86 mg/dL Calcium Level 8.9 mg/dL Magnesium Level 2.1 mg/dL Total Bilirubin 0.6 mg/dL Direct Bilirubin 0.2 mg/dL Aspartate Amino Transf (AST/SGOT) 165 U/L Alanine Aminotransferase (ALT/SGPT) 753 U/L Alkaline Phosphatase 209 U/L Total Protein 6.1 g/dL Albumin 3.0 g/dL Lipase 157 U/L SARS-CoV-2 Antigen (Rapid) Negative PE: GEN: NAD LUNGS: CTAB HEART: RRR ABD: soft, non-tender NEURO/PSYCH: A & O 3, tearful A/P: Pancreatitis w/ GB sludge Elevated LFTs - Alk Phos bit higher, rest better -- Attempted to address concerns re: cholecystectomy. Justicifation of Admission Dx: Justifications for Admission: Justification of Admission Dx: Yes Sepsis: Dehydration CORBY CORDON Oct 18, 2021 10:55
[2021-10-18] MEDS: IV NORMAL SALINE 1000ML BAG 1,000 ML IV SCH ×3 (11:00→21:24)
--- NOTE | 2021-10-18 11:20 | NUR ---
Pt to surgery by bed.
[2021-10-18] MEDS ORDERED: ROCURONIUM 100 MG/10 ML VIAL. ONE (12:13)
[2021-10-18] MEDS ORDERED: fentaNYL PF VIAL 100 MCG/2 ML VIAL ONE (12:13)
[2021-10-18] MEDS ORDERED: DEXAMETHASONE SOD PHOS 4 MG/ML VIAL ONE (12:13)
[2021-10-18] MEDS ORDERED: ONDANSETRON PF 4 MG/2 ML VIAL. ONE (12:13)
[2021-10-18] MEDS ORDERED: PROPOFOL 10 MG/ML (20ML) VIAL. IV ONE (12:13)
[2021-10-18] MEDS ORDERED: LIDOCAINE 2% PF 5 ML VIAL. ONE (12:14)
--- NOTE | 2021-10-18 12:37 | PDOC ---
SURGICAL PROGRESS NOTE DATE: 10/18/21 TIME: 12:35 Subjective Pre-Op Note 51 yo F with gallstone pancreatitis. Pt reports feeling well today. No N/V. Lipase normalized as well as improvement in LFTs. TO OR for laparoscopic versus open cholecystectomy with cholangiogram. R/R/B/A d/w pt. Risks, including, but not limited to: bleeding, infection, damage to surrounding structures, risk of anesthesia, risk of open. She appears to understand, her questions are answered and she elects to proceed. Vital Signs Vital Signs Date Time Temp Pulse Resp B/P (MAP) Pulse Ox O2 Delivery O2 Flow Rate FiO2 10/18/21 11:25 98.2 67 16 161/81 98 Room Air 98.2 I&O Intake and Output 10/18/21 06:59 Intake Total 1200 ml Output Total 0 ml Balance 1200 ml Blood Product IV Normal Saline Flush 1200 ml Output Stool Total 0 ml # Voids 5 Labs Laboratory Tests Test 10/17/21 03:45 10/18/21 04:15 10/18/21 08:45 White Blood Count 3.9 x10^3/uL (4.0-11.0) 4.9 x10^3/uL (4.0-11.0) Red Blood Count 4.15 x10^6/uL (3.50-5.40) 4.34 x10^6/uL (3.50-5.40) Hemoglobin 12.7 g/dL (12.0-15.5) 13.5 g/dL (12.0-15.5) Hematocrit 37.8 % (36.0-47.0) 38.8 % (36.0-47.0) Mean Corpuscular Volume 91 fL (79-100) 89 fL (79-100) Mean Corpuscular Hemoglobin 31 pg (25-35) 31 pg (25-35) Mean Corpuscular Hemoglobin Concent 34 g/dL (31-37) 35 g/dL (31-37) Red Cell Distribution Width 14.6 % (11.5-14.5) 14.5 % (11.5-14.5) Platelet Count 238 x10^3/uL (140-400) 250 x10^3/uL (140-400) Neutrophils (%) (Auto) 30 % (31-73) 42 % (31-73) Lymphocytes (%) (Auto) 58 % (24-48) 46 % (24-48) Monocytes (%) (Auto) 7 % (0-9) 8 % (0-9) Eosinophils (%) (Auto) 5 % (0-3) 4 % (0-3) Basophils (%) (Auto) 1 % (0-3) 1 % (0-3) Neutrophils # (Auto) 1.2 x10^3/uL (1.8-7.7) 2.1 x10^3/uL (1.8-7.7) Lymphocytes # (Auto) 2.3 x10^3/uL (1.0-4.8) 2.2 x10^3/uL (1.0-4.8) Monocytes # (Auto) 0.3 x10^3/uL (0.0-1.1) 0.4 x10^3/uL (0.0-1.1) Eosinophils # (Auto) 0.2 x10^3/uL (0.0-0.7) 0.2 x10^3/uL (0.0-0.7) Basophils # (Auto) 0.0 x10^3/uL (0.0-0.2) 0.0 x10^3/uL (0.0-0.2) Sodium Level 138 mmol/L (136-145) 140 mmol/L (136-145) Potassium Level 4.2 mmol/L (3.5-5.1) 3.9 mmol/L (3.5-5.1) Chloride Level 105 mmol/L (98-107) 105 mmol/L (98-107) Carbon Dioxide Level 26 mmol/L (21-32) 26 mmol/L (21-32) Anion Gap 7 (6-14) 9 (6-14) Blood Urea Nitrogen 10 mg/dL (7-20) 8 mg/dL (7-20) Creatinine 0.9 mg/dL (0.6-1.0) 0.7 mg/dL (0.6-1.0) Estimated GFR (Cockcroft-Gault) 66.0 88.2 BUN/Creatinine Ratio 11 (6-20) Glucose Level 71 mg/dL (70-99) 86 mg/dL (70-99) Calcium Level 8.1 mg/dL (8.5-10.1) 8.9 mg/dL (8.5-10.1) Phosphorus Level 3.4 mg/dL (2.6-4.7) Magnesium Level 1.9 mg/dL (1.8-2.4) 2.1 mg/dL (1.8-2.4) Total Bilirubin 1.2 mg/dL (0.2-1.0) 0.6 mg/dL (0.2-1.0) Direct Bilirubin 0.6 mg/dL (0.0-0.2) 0.2 mg/dL (0.0-0.2) Aspartate Amino Transf (AST/SGOT) 524 U/L (15-37) 165 U/L (15-37) Alanine Aminotransferase (ALT/SGPT) 1130 U/L (14-59) 753 U/L (14-59) Alkaline Phosphatase 197 U/L (46-116) 209 U/L (46-116) Total Protein 6.0 g/dL (6.4-8.2) 6.1 g/dL (6.4-8.2) Albumin 3.0 g/dL (3.4-5.0) 3.0 g/dL (3.4-5.0) Albumin/Globulin Ratio 1.0 (1.0-1.7) Lipase 157 U/L (73-393) SARS-CoV-2 Antigen (Rapid) Negative (NEGATIVE) Laboratory Tests Test 10/18/21 04:15 10/18/21 08:45 White Blood Count 4.9 x10^3/uL (4.0-11.0) Red Blood Count 4.34 x10^6/uL (3.50-5.40) Hemoglobin 13.5 g/dL (12.0-15.5) Hematocrit 38.8 % (36.0-47.0) Mean Corpuscular Volume 89 fL (79-100) Mean Corpuscular Hemoglobin 31 pg (25-35) Mean Corpuscular Hemoglobin Concent 35 g/dL (31-37) Red Cell Distribution Width 14.5 % (11.5-14.5) Platelet Count 250 x10^3/uL (140-400) Neutrophils (%) (Auto) 42 % (31-73) Lymphocytes (%) (Auto) 46 % (24-48) Monocytes (%) (Auto) 8 % (0-9) Eosinophils (%) (Auto) 4 % (0-3) Basophils (%) (Auto) 1 % (0-3) Neutrophils # (Auto) 2.1 x10^3/uL (1.8-7.7) Lymphocytes # (Auto) 2.2 x10^3/uL (1.0-4.8) Monocytes # (Auto) 0.4 x10^3/uL (0.0-1.1) Eosinophils # (Auto) 0.2 x10^3/uL (0.0-0.7) Basophils # (Auto) 0.0 x10^3/uL (0.0-0.2) Sodium Level 140 mmol/L (136-145) Potassium Level 3.9 mmol/L (3.5-5.1) Chloride Level 105 mmol/L (98-107) Carbon Dioxide Level 26 mmol/L (21-32) Anion Gap 9 (6-14) Blood Urea Nitrogen 8 mg/dL (7-20) Creatinine 0.7 mg/dL (0.6-1.0) Estimated GFR (Cockcroft-Gault) 88.2 Glucose Level 86 mg/dL (70-99) Calcium Level 8.9 mg/dL (8.5-10.1) Magnesium Level 2.1 mg/dL (1.8-2.4) Total Bilirubin 0.6 mg/dL (0.2-1.0) Direct Bilirubin 0.2 mg/dL (0.0-0.2) Aspartate Amino Transf (AST/SGOT) 165 U/L (15-37) Alanine Aminotransferase (ALT/SGPT) 753 U/L (14-59) Alkaline Phosphatase 209 U/L (46-116) Total Protein 6.1 g/dL (6.4-8.2) Albumin 3.0 g/dL (3.4-5.0) Lipase 157 U/L (73-393) SARS-CoV-2 Antigen (Rapid) Negative (NEGATIVE) Problem List Problems Medical Problems: (1) Choledocholithiasis with cholecystitis Status: Acute (2) Right upper quadrant abdominal pain Status: Acute Justicifation of Admission Dx: Justifications for Admission: Justification of Admission Dx: Yes Sepsis: Dehydration CHARLES LEE MD Oct 18, 2021 12:37
[2021-10-18] MEDS ORDERED: GLYCOPYRROLATE 1 MG/5 ML VIAL. ONE (13:36)
[2021-10-18] MEDS ORDERED: NEOSTIGMINE METHYLSULFATE 5 MG/5 ML SYRINGE. ONE (13:36)
[2021-10-18] MEDS ORDERED: HYDROmorphone 2 MG/ML INJ. ONE (13:46)
[2021-10-18] MEDS ORDERED: SEVOFLURANE 61 TO 120 MINUTES. IH ONE (13:56)
--- NOTE | 2021-10-18 14:27 | PDOC4 ---
OPERATIVE NOTE Date: Date: Oct 18, 2021 Pre-Op Diagnosis: Gallstone pancreatitis Post-Op Diagnosis: same, cholecystitis Procedure Performed: laparoscopic cholecystectomy with cholangiogram Surgeon: [place] Lee Anesthesia Type: GETA plus local Blood Loss: 50 Specimans Obtained: gallbladder Findings: adhesions to gallbladder, grossly normal liver, adhesions to lower abdominal wall c/w previous c section, normal cholangiogram Complications: none Operative Note: After obtaining informed consent, patient was taken to OR, induced under GETA and prepped in the usual fashion. 5 mm ports placed umbilical and RUQ, 12 port placed epigastric, all under laparoscopic guidance. Abdominal cavity was explored and noted as above. Adhesions taken down using blunt dissection. Gallbladder taken off fossa using cautery in dome down fashion. Cystic artery and cystic duct only structures remaining. Cholangiogram obtained via cystic duct and was normal. Cystic duct ligated with clips and hemolok. Gallbladder placed in bag, delivered and sent to pathology. Copious irrigation. No evidence of bleeding or other pathology. Ports removed without bleeding. Fascia repaired with 0 vicryl. Skin repaired with 4 0 monocryl. Dressing placed. Patient tolerated procedure well and sent to PACU in stable condition. All counts correct. Wound class is 3. CHARLES LEE MD Oct 18, 2021 14:27
[2021-10-18] MEDS ORDERED: PROCHLORPERAZINE 10 MG/2 ML VIAL. ONE (14:28)
[2021-10-18] MEDS ORDERED: 0.9 % SODIUM CHLORIDE 10 ML DISP.SYRIN. IV PRN (14:30)
[2021-10-18] MEDS ORDERED: HYDROcodone/APAP 5/325MG 1 TAB TABLET PO PRN (14:30)
[2021-10-18] MEDS ORDERED: IV DEXTROSE 5% 250 ML BAG. IV PRN (14:30)
[2021-10-18] MEDS ORDERED: DEXTROSE 50% 25 GM / 50ML DISP.SYRIN. IV PRN (14:30)
[2021-10-18] MEDS ORDERED: ONDANSETRON PF 4 MG/2 ML VIAL. IVP PRN (14:30)
[2021-10-18] MEDS: IV RINGERS,LACTATED 1000ML 1,000 ML IV SCH ×2 (14:30→23:19)
[2021-10-18] MEDS ORDERED: KETOROLAC 30 MG/ML VIAL. IVP ONE (14:30)
[2021-10-18] MEDS ORDERED: NALOXONE 0.4 MG/ML VIAL. IV PRN (14:30)
[2021-10-18] MEDS: PROCHLORPERAZINE 10 MG/2 ML VIAL. IVP PRN ×2 (14:34→14:57)
--- NOTE | 2021-10-18 15:10 | NUR ---
Pt. in surgery, unable to complete elopement risk assessment at this time.
--- NOTE | 2021-10-18 15:24 | NUR ---
Return to unit by bed from PACU. Awake and visiting with family. IVF's intact and infusing on right hand started in surgery. 3 Lap sites d/i. SCD's on bilaterally. Side rails up x's 2 with call light in reach. Taking sips H2O without difficulty. Cont. monitor.
--- NOTE | 2021-10-18 15:49 | RAD ---
EXAM: DG INTRAOPERATIVE CHOLANGIOGRAM 10/18/2021 1:01 PM CLINICAL INDICATION: Intraoperative cholangiogram during cholecystectomy COMPARISON: None TECHNIQUE: 2 fluoroscopic images of a cholangiogram were obtained during cholecystectomy. FINDINGS: Contrast opacifies the common and intrahepatic bile ducts. The ducts are mildly dilated. T here is no filling defect but there is somewhat abrupt narrowing of the distal common bile duct near the ampulla, which could be due to a stricture or spasm/edema. Total fluoroscopic time 0.12 minutes. 2 images saved. IMPRESSION: 1. Intraoperative cholangiogram during cholecystectomy. 2. Mildly dilated bile ducts without filling defect. 3. Abrupt narrowing of the distal common bile duct near the ampulla, which could be due to stricture, spasm, or edema. Electronically signed by: Moira Little MD (10/18/2021 3:46 PM) [id number]
--- NOTE | 2021-10-18 16:00 | NUR ---
No elopement risk.
[2021-10-18 19:00] VITALS: BP 122/63
[2021-10-18] MEDS ORDERED: PIP/TAZO PER PHARMACY MC PRN (19:45)
--- NOTE | 2021-10-18 19:58 | PDOC ---
[employer] PROGRESS NOTE Date of Service DOS: DATE: 10/18/21 TIME: 19:56 Chief Complaint Chief Complaint Acute abdominal pain with elevated liver enzymes suggestive of biliary obstruction, possible choledocholithiasis, possible acute cholecystitis Mild hyperbilirubinemia, conjugated versus not conjugated History of depression anxiety History of hypertension History of cervical cancer History of Present Illness History of Present Illness 51-year-old female with past medical history of depression/anxiety, hypertension and kidney stones and cervical cancer who is pending treatment for that comes in with right upper quadrant pain that radiates to the substernal region and lower abdominal region. She does endorse nausea a few hours before arrival. Apparently this is the third episode of similar abdominal pain for the past 2 weeks. She has never had pain like this before that. Pain is 6 out of 10. Denies fevers, shortness of breath, cough, upper respiratory symptoms, hematuria, constipation, diarrhea, oliguria or extremity pain. 10/17/2021 No acute events overnight. Patient seen examined bedside. No concerns from nursing. Pain is well controlled. On-call to the OR today for laparoscopic cholecystectomy. 10/18, surg today went well, discussed wound class with Dr. Garcia, he does not think further abx are needed, will check CBC adn chem 12 in AM pt feels much ebtter, pain better and wants to leave tonight, I asked her to stay to make sure her Chem 12 is improved, i reviewed her LFTs. Vitals/I&O Vitals/I&O: Vital Signs Date Time Temp Pulse Resp B/P (MAP) Pulse Ox O2 Delivery O2 Flow Rate FiO2 10/18/21 15:06 98.0 64 20 121/59 92 Room Air 98.0 10/18/21 14:36 10.0 I & O 10/17/21 10/17/21 10/18/21 15:00 23:00 07:00 Intake Total 1200 ml Output Total 0 ml Balance 1200 ml Physical Exam General: Alert, Oriented X3, Cooperative, mild distress Abdomen: Soft, No tenderness Extremities: No clubbing, No cyanosis Skin: No rashes, No breakdown Labs Labs: Laboratory Tests Test 10/18/21 04:15 10/18/21 08:45 White Blood Count 4.9 x10^3/uL (4.0-11.0) Red Blood Count 4.34 x10^6/uL (3.50-5.40) Hemoglobin 13.5 g/dL (12.0-15.5) Hematocrit 38.8 % (36.0-47.0) Mean Corpuscular Volume 89 fL (79-100) Mean Corpuscular Hemoglobin 31 pg (25-35) Mean Corpuscular Hemoglobin Concent 35 g/dL (31-37) Red Cell Distribution Width 14.5 % (11.5-14.5) Platelet Count 250 x10^3/uL (140-400) Neutrophils (%) (Auto) 42 % (31-73) Lymphocytes (%) (Auto) 46 % (24-48) Monocytes (%) (Auto) 8 % (0-9) Eosinophils (%) (Auto) 4 % (0-3) Basophils (%) (Auto) 1 % (0-3) Neutrophils # (Auto) 2.1 x10^3/uL (1.8-7.7) Lymphocytes # (Auto) 2.2 x10^3/uL (1.0-4.8) Monocytes # (Auto) 0.4 x10^3/uL (0.0-1.1) Eosinophils # (Auto) 0.2 x10^3/uL (0.0-0.7) Basophils # (Auto) 0.0 x10^3/uL (0.0-0.2) Sodium Level 140 mmol/L (136-145) Potassium Level 3.9 mmol/L (3.5-5.1) Chloride Level 105 mmol/L (98-107) Carbon Dioxide Level 26 mmol/L (21-32) Anion Gap 9 (6-14) Blood Urea Nitrogen 8 mg/dL (7-20) Creatinine 0.7 mg/dL (0.6-1.0) Estimated GFR (Cockcroft-Gault) 88.2 Glucose Level 86 mg/dL (70-99) Calcium Level 8.9 mg/dL (8.5-10.1) Magnesium Level 2.1 mg/dL (1.8-2.4) Total Bilirubin 0.6 mg/dL (0.2-1.0) Direct Bilirubin 0.2 mg/dL (0.0-0.2) Aspartate Amino Transf (AST/SGOT) 165 U/L (15-37) Alanine Aminotransferase (ALT/SGPT) 753 U/L (14-59) Alkaline Phosphatase 209 U/L (46-116) Total Protein 6.1 g/dL (6.4-8.2) Albumin 3.0 g/dL (3.4-5.0) Lipase 157 U/L (73-393) SARS-CoV-2 Antigen (Rapid) Negative (NEGATIVE) Assessment and Plan Assessmemt and Plan Problems Medical Problems: (1) Choledocholithiasis with cholecystitis Status: Acute (2) Right upper quadrant abdominal pain Status: Acute Comment Review of Relevant I have reviewed the following items devendra (where applicable) has been applied. Medications: Current Medications Medications (Trade) Dose Ordered Sig/Sonny Route PRN Reason Start Time Stop Time Status Last Admin Dose Admin Heparin Sodium (Porcine) 1000 unit/Sodium Chloride 1,001 ml @ 1,001 mls/hr 1X ONCE IRR 10/18/21 06:00 10/18/21 06:59 DC 10/18/21 13:39 Ringer's Solution 1,000 ml @ 30 mls/hr Q24H IV 10/18/21 06:00 10/18/21 17:59 DC 10/18/21 14:35 Prochlorperazine Edisylate (Compazine) 5 mg PACU PRN PRN IVP NAUSEA, MRX1 10/18/21 06:00 10/19/21 05:59 10/18/21 14:57 Bupivacaine HCl/ Epinephrine Bitart (Sensorcain-Epi 0.5% Kit) 30 ml STK-MED ONCE .ROUTE 10/18/21 09:01 10/18/21 09:01 DC 10/18/21 13:37 Iohexol (Omnipaque 300 Mg/ml) 50 ml STK-MED ONCE .ROUTE 10/18/21 09:01 10/18/21 09:01 DC 10/18/21 13:38 Ketorolac Tromethamine (Toradol 30mg Vial) 30 mg 1X ONCE IVP 10/18/21 14:30 10/18/21 14:31 DC 10/18/21 14:34 Justifications for Admission Other Justification Gallstone pancreatitis NEELA ESCALANTE MD Oct 18, 2021 19:58
[2021-10-18] MEDS: DOCUSATE SODIUM 100 MG CAPSULE. PO SCH (21:00)
[2021-10-18] MEDS ORDERED: PIPERACILLIN/TAZOBACTAM 3.375 GM in IV NORMAL SALINE 50ML 50 ML IV SCH (22:00)
[2021-10-18] MEDS: ACETAMINOPHEN 325 MG TABLET. PO PRN (22:36)
[2021-10-18] MEDS: diphenhydrAMINE HCL 25 MG CAPSULE PO PRN (22:43)
[2021-10-18 23:00] VITALS: BP 113/77
[2021-10-19 02:51] VITALS: BP 118/75
[2021-10-19] MEDS: oxyCODONE/APAP 5/325 1 TAB TABLET PO PRN (06:15)
[2021-10-19] MEDS: IV NORMAL SALINE 1000ML BAG 1,000 ML IV SCH ×2 (06:16→10:19)
[2021-10-19] MEDS: PANTOPRAZOLE IV PUSH 40 MG VIAL. IVP SCH (06:16)
[2021-10-19 07:00] VITALS: BP 119/66
[2021-10-19] MEDS: DOCUSATE SODIUM 100 MG CAPSULE. PO SCH (09:00)
[2021-10-19 09:30] LABS: BASO % 0 % (0-3); EOS % 0 % (0-3); HEMATOCRIT 36.8 % (36.0-47.0); HEMOGLOBIN 12.8 g/dL (12.0-15.5); LYMPH # 1.9 x10^3/uL (1.0-4.8); LYMPH % 24 % (24-48); MEAN CORPUSCULAR HEMOGLOBIN 31 pg (25-35); MEAN CORPUSCULAR HGB CONC 35 g/dL (31-37); MEAN CORPUSCULAR VOLUME 88 fL (79-100); MONO # 0.7 x10^3/uL (0.0-1.1); MONO % 9 % (0-9); NEUT # 5.2 x10^3/uL (1.8-7.7); NEUT % 67 % (31-73); PLATELET COUNT 270 x10^3/uL (140-400); RED BLOOD COUNT 4.17 x10^6/uL (3.50-5.40); RED CELL DISTRIBUTION WIDTH 14.2 % (11.5-14.5); WHITE BLOOD COUNT 7.8 x10^3/uL (4.0-11.0)
[2021-10-19 09:41] LABS: CALCIUM 8.5 mg/dL (8.5-10.1); CREATININE 0.8 mg/dL (0.6-1.0); GFR 75.6; MAGNESIUM 1.9 mg/dL (1.8-2.4); POTASSIUM 3.9 mmol/L (3.5-5.1)
[2021-10-19 09:45] LABS: ALBUMIN 2.9 g/dL (3.4-5.0); DIRECT BILIRUBIN 0.1 mg/dL (0.0-0.2); TOTAL BILIRUBIN 0.4 mg/dL (0.2-1.0); TOTAL PROTEIN 5.7 g/dL (6.4-8.2)
[2021-10-19] MEDS: ENOXAPARIN 40 MG/0.4 ML SYRINGE. SQ SCH (10:00)
[2021-10-19] MEDS: IV RINGERS,LACTATED 1000ML 1,000 ML IV SCH (10:19)
[2021-10-19 10:59] VITALS: BP 122/68
--- NOTE | 2021-10-19 12:00 | PDOC ---
G I PROGRESS NOTE Subjective No complaints. Says eating. Would love to go home. Physical Exam Lungs clear anteriorly. RRR Abdomen soft, not tender nor distended. Review of Relevant I have reviewed the following items devendra (where applicable) has been applied. Labs Laboratory Tests Test 10/17/21 17:00 10/18/21 04:15 10/18/21 08:45 10/19/21 08:50 Coronavirus (COVID-19)(PCR) Not detected (NOT DETECTD) White Blood Count 4.9 x10^3/uL (4.0-11.0) 7.8 x10^3/uL (4.0-11.0) Red Blood Count 4.34 x10^6/uL (3.50-5.40) 4.17 x10^6/uL (3.50-5.40) Hemoglobin 13.5 g/dL (12.0-15.5) 12.8 g/dL (12.0-15.5) Hematocrit 38.8 % (36.0-47.0) 36.8 % (36.0-47.0) Mean Corpuscular Volume 89 fL (79-100) 88 fL (79-100) Mean Corpuscular Hemoglobin 31 pg (25-35) 31 pg (25-35) Mean Corpuscular Hemoglobin Concent 35 g/dL (31-37) 35 g/dL (31-37) Red Cell Distribution Width 14.5 % (11.5-14.5) 14.2 % (11.5-14.5) Platelet Count 250 x10^3/uL (140-400) 270 x10^3/uL (140-400) Neutrophils (%) (Auto) 42 % (31-73) 67 % (31-73) Lymphocytes (%) (Auto) 46 % (24-48) 24 % (24-48) Monocytes (%) (Auto) 8 % (0-9) 9 % (0-9) Eosinophils (%) (Auto) 4 % (0-3) 0 % (0-3) Basophils (%) (Auto) 1 % (0-3) 0 % (0-3) Neutrophils # (Auto) 2.1 x10^3/uL (1.8-7.7) 5.2 x10^3/uL (1.8-7.7) Lymphocytes # (Auto) 2.2 x10^3/uL (1.0-4.8) 1.9 x10^3/uL (1.0-4.8) Monocytes # (Auto) 0.4 x10^3/uL (0.0-1.1) 0.7 x10^3/uL (0.0-1.1) Eosinophils # (Auto) 0.2 x10^3/uL (0.0-0.7) 0.0 x10^3/uL (0.0-0.7) Basophils # (Auto) 0.0 x10^3/uL (0.0-0.2) 0.0 x10^3/uL (0.0-0.2) Sodium Level 140 mmol/L (136-145) 138 mmol/L (136-145) Potassium Level 3.9 mmol/L (3.5-5.1) 3.9 mmol/L (3.5-5.1) Chloride Level 105 mmol/L (98-107) 106 mmol/L (98-107) Carbon Dioxide Level 26 mmol/L (21-32) 27 mmol/L (21-32) Anion Gap 9 (6-14) 5 (6-14) Blood Urea Nitrogen 8 mg/dL (7-20) 10 mg/dL (7-20) Creatinine 0.7 mg/dL (0.6-1.0) 0.8 mg/dL (0.6-1.0) Estimated GFR (Cockcroft-Gault) 88.2 75.6 Glucose Level 86 mg/dL (70-99) 118 mg/dL (70-99) Calcium Level 8.9 mg/dL (8.5-10.1) 8.5 mg/dL (8.5-10.1) Magnesium Level 2.1 mg/dL (1.8-2.4) 1.9 mg/dL (1.8-2.4) Total Bilirubin 0.6 mg/dL (0.2-1.0) 0.4 mg/dL (0.2-1.0) Direct Bilirubin 0.2 mg/dL (0.0-0.2) 0.1 mg/dL (0.0-0.2) Aspartate Amino Transf (AST/SGOT) 165 U/L (15-37) 87 U/L (15-37) Alanine Aminotransferase (ALT/SGPT) 753 U/L (14-59) 460 U/L (14-59) Alkaline Phosphatase 209 U/L (46-116) 178 U/L (46-116) Total Protein 6.1 g/dL (6.4-8.2) 5.7 g/dL (6.4-8.2) Albumin 3.0 g/dL (3.4-5.0) 2.9 g/dL (3.4-5.0) Lipase 157 U/L (73-393) SARS-CoV-2 Antigen (Rapid) Negative (NEGATIVE) Laboratory Tests Test 10/19/21 08:50 White Blood Count 7.8 x10^3/uL (4.0-11.0) Red Blood Count 4.17 x10^6/uL (3.50-5.40) Hemoglobin 12.8 g/dL (12.0-15.5) Hematocrit 36.8 % (36.0-47.0) Mean Corpuscular Volume 88 fL (79-100) Mean Corpuscular Hemoglobin 31 pg (25-35) Mean Corpuscular Hemoglobin Concent 35 g/dL (31-37) Red Cell Distribution Width 14.2 % (11.5-14.5) Platelet Count 270 x10^3/uL (140-400) Neutrophils (%) (Auto) 67 % (31-73) Lymphocytes (%) (Auto) 24 % (24-48) Monocytes (%) (Auto) 9 % (0-9) Eosinophils (%) (Auto) 0 % (0-3) Basophils (%) (Auto) 0 % (0-3) Neutrophils # (Auto) 5.2 x10^3/uL (1.8-7.7) Lymphocytes # (Auto) 1.9 x10^3/uL (1.0-4.8) Monocytes # (Auto) 0.7 x10^3/uL (0.0-1.1) Eosinophils # (Auto) 0.0 x10^3/uL (0.0-0.7) Basophils # (Auto) 0.0 x10^3/uL (0.0-0.2) Sodium Level 138 mmol/L (136-145) Potassium Level 3.9 mmol/L (3.5-5.1) Chloride Level 106 mmol/L (98-107) Carbon Dioxide Level 27 mmol/L (21-32) Anion Gap 5 (6-14) Blood Urea Nitrogen 10 mg/dL (7-20) Creatinine 0.8 mg/dL (0.6-1.0) Estimated GFR (Cockcroft-Gault) 75.6 Glucose Level 118 mg/dL (70-99) Calcium Level 8.5 mg/dL (8.5-10.1) Magnesium Level 1.9 mg/dL (1.8-2.4) Total Bilirubin 0.4 mg/dL (0.2-1.0) Direct Bilirubin 0.1 mg/dL (0.0-0.2) Aspartate Amino Transf (AST/SGOT) 87 U/L (15-37) Alanine Aminotransferase (ALT/SGPT) 460 U/L (14-59) Alkaline Phosphatase 178 U/L (46-116) Total Protein 5.7 g/dL (6.4-8.2) Albumin 2.9 g/dL (3.4-5.0) LFT's continue to improve. Vitals/I & O Vital Sign - Last 24 Hours 10/18/21 10/18/21 10/18/21 10/18/21 14:21 14:36 14:51 15:06 Temp 98.0 98.0 Pulse 58 55 66 64 Resp 22 20 20 20 B/P (MAP) 120/55 115/41 117/52 121/59 Pulse Ox 97 96 92 92 O2 Delivery Simple Mask Simple Mask Room Air Room Air O2 Flow Rate 10.0 10.0 10/18/21 10/18/21 10/18/21 10/19/21 19:00 20:00 23:00 02:51 Temp 97.8 97.8 97.7 97.8 97.8 97.7 Pulse 75 90 58 Resp 18 18 18 B/P (MAP) 122/63 (82) 113/77 (89) 118/75 (89) Pulse Ox 94 93 94 O2 Delivery Room Air Room Air Room Air Room Air 10/19/21 10/19/21 10/19/21 10/19/21 06:15 06:52 07:00 08:00 Temp 98.0 98.0 Pulse 74 Resp 14 14 16 B/P (MAP) 119/66 (83) Pulse Ox 94 O2 Delivery Room Air Room Air Room Air Room Air 10/19/21 10:59 Temp 98.0 98.0 Pulse 68 Resp 16 B/P (MAP) 122/68 (86) Pulse Ox 94 O2 Delivery Room Air Intake and Output 10/18/21 10/18/21 10/19/21 15:00 23:00 07:00 Intake Total 1350 ml 700 ml 1300 ml Output Total 10 ml Balance 1340 ml 700 ml 1300 ml Images IOC w/o stones. Problem List Problems Medical Problems: (1) Choledocholithiasis with cholecystitis Status: Acute (2) Right upper quadrant abdominal pain Status: Acute Assessment Biliary pancreatitis, now post-morgan. Plan of Care Note Diet, etc. per surgical service. No objections to discharge. Justicifation of Admission Dx: Justifications for Admission: Justification of Admission Dx: Yes Sepsis: Dehydration ERNESTINA MURCIA MD Oct 19, 2021 12:00
[2021-10-19] MEDS ORDERED: HYDR-2761 PO (12:47)
--- NOTE | 2021-10-19 12:50 | DISCH ---
DISCHARGE INSTRUCTIONS Condition on Discharge Condition on Discharge: Stable Activity After Discharge Activity Instructions for Disc: Resume previous activity Bathing Instructions: Shower-keep dressing dry Driving Instructions after Dis: Do not drive today Weight Bearing Status after Di: As tolerated Diet after Discharge Diet after Discharge: Sunday Contacting the DR. after DC Call your doctor for: If your condition worsens HILLARY HUNTLEY MD Oct 19, 2021 12:50
--- NOTE | 2021-10-19 12:55 | PDOC3 ---
Discharge Summary Visit Information Date of Admission: Oct 16, 2021 Date of Discharge: Oct 19, 2021 Admitting Diagnosis: gallstone pancreatitis Admitting Diagnosis Comment: See below for further information about hospital course including presentation. Final Diagnosis Problems Medical Problems: (1) Choledocholithiasis with cholecystitis Status: Acute (2) Right upper quadrant abdominal pain Status: Acute Brief Hospital Course Allergies Allergies Coded Allergies Type Severity Reaction Last Updated Verified No Known Drug Allergies 10/18/21 No Vital Signs Vital Signs Date Time Temp Pulse Resp B/P (MAP) Pulse Ox O2 Delivery O2 Flow Rate FiO2 10/19/21 10:59 98.0 68 16 122/68 (86) 94 Room Air 98.0 10/18/21 14:36 10.0 In general patient is pleasant alert and oriented x3 no acute distress Chest is clear to auscultation Heart S1-S2 normal regular rate and rhythm no murmurs or gallops noted Abdomen soft nontender nondistended no masses organomegaly noted. Surgical dressings are dry and clean and intact Extremity exam is unremarkable for acute abnormality. Lab Results Laboratory Tests Test 10/17/21 17:00 10/18/21 04:15 10/18/21 08:45 10/19/21 08:50 Coronavirus (COVID-19)(PCR) Not detected (NOT DETECTD) White Blood Count 4.9 x10^3/uL (4.0-11.0) 7.8 x10^3/uL (4.0-11.0) Red Blood Count 4.34 x10^6/uL (3.50-5.40) 4.17 x10^6/uL (3.50-5.40) Hemoglobin 13.5 g/dL (12.0-15.5) 12.8 g/dL (12.0-15.5) Hematocrit 38.8 % (36.0-47.0) 36.8 % (36.0-47.0) Mean Corpuscular Volume 89 fL (79-100) 88 fL (79-100) Mean Corpuscular Hemoglobin 31 pg (25-35) 31 pg (25-35) Mean Corpuscular Hemoglobin Concent 35 g/dL (31-37) 35 g/dL (31-37) Red Cell Distribution Width 14.5 % (11.5-14.5) 14.2 % (11.5-14.5) Platelet Count 250 x10^3/uL (140-400) 270 x10^3/uL (140-400) Neutrophils (%) (Auto) 42 % (31-73) 67 % (31-73) Lymphocytes (%) (Auto) 46 % (24-48) 24 % (24-48) Monocytes (%) (Auto) 8 % (0-9) 9 % (0-9) Eosinophils (%) (Auto) 4 % (0-3) 0 % (0-3) Basophils (%) (Auto) 1 % (0-3) 0 % (0-3) Neutrophils # (Auto) 2.1 x10^3/uL (1.8-7.7) 5.2 x10^3/uL (1.8-7.7) Lymphocytes # (Auto) 2.2 x10^3/uL (1.0-4.8) 1.9 x10^3/uL (1.0-4.8) Monocytes # (Auto) 0.4 x10^3/uL (0.0-1.1) 0.7 x10^3/uL (0.0-1.1) Eosinophils # (Auto) 0.2 x10^3/uL (0.0-0.7) 0.0 x10^3/uL (0.0-0.7) Basophils # (Auto) 0.0 x10^3/uL (0.0-0.2) 0.0 x10^3/uL (0.0-0.2) Sodium Level 140 mmol/L (136-145) 138 mmol/L (136-145) Potassium Level 3.9 mmol/L (3.5-5.1) 3.9 mmol/L (3.5-5.1) Chloride Level 105 mmol/L (98-107) 106 mmol/L (98-107) Carbon Dioxide Level 26 mmol/L (21-32) 27 mmol/L (21-32) Anion Gap 9 (6-14) 5 (6-14) Blood Urea Nitrogen 8 mg/dL (7-20) 10 mg/dL (7-20) Creatinine 0.7 mg/dL (0.6-1.0) 0.8 mg/dL (0.6-1.0) Estimated GFR (Cockcroft-Gault) 88.2 75.6 Glucose Level 86 mg/dL (70-99) 118 mg/dL (70-99) Calcium Level 8.9 mg/dL (8.5-10.1) 8.5 mg/dL (8.5-10.1) Magnesium Level 2.1 mg/dL (1.8-2.4) 1.9 mg/dL (1.8-2.4) Total Bilirubin 0.6 mg/dL (0.2-1.0) 0.4 mg/dL (0.2-1.0) Direct Bilirubin 0.2 mg/dL (0.0-0.2) 0.1 mg/dL (0.0-0.2) Aspartate Amino Transf (AST/SGOT) 165 U/L (15-37) 87 U/L (15-37) Alanine Aminotransferase (ALT/SGPT) 753 U/L (14-59) 460 U/L (14-59) Alkaline Phosphatase 209 U/L (46-116) 178 U/L (46-116) Total Protein 6.1 g/dL (6.4-8.2) 5.7 g/dL (6.4-8.2) Albumin 3.0 g/dL (3.4-5.0) 2.9 g/dL (3.4-5.0) Lipase 157 U/L (73-393) SARS-CoV-2 Antigen (Rapid) Negative (NEGATIVE) Laboratory Tests Test 10/19/21 08:50 White Blood Count 7.8 x10^3/uL (4.0-11.0) Red Blood Count 4.17 x10^6/uL (3.50-5.40) Hemoglobin 12.8 g/dL (12.0-15.5) Hematocrit 36.8 % (36.0-47.0) Mean Corpuscular Volume 88 fL (79-100) Mean Corpuscular Hemoglobin 31 pg (25-35) Mean Corpuscular Hemoglobin Concent 35 g/dL (31-37) Red Cell Distribution Width 14.2 % (11.5-14.5) Platelet Count 270 x10^3/uL (140-400) Neutrophils (%) (Auto) 67 % (31-73) Lymphocytes (%) (Auto) 24 % (24-48) Monocytes (%) (Auto) 9 % (0-9) Eosinophils (%) (Auto) 0 % (0-3) Basophils (%) (Auto) 0 % (0-3) Neutrophils # (Auto) 5.2 x10^3/uL (1.8-7.7) Lymphocytes # (Auto) 1.9 x10^3/uL (1.0-4.8) Monocytes # (Auto) 0.7 x10^3/uL (0.0-1.1) Eosinophils # (Auto) 0.0 x10^3/uL (0.0-0.7) Basophils # (Auto) 0.0 x10^3/uL (0.0-0.2) Sodium Level 138 mmol/L (136-145) Potassium Level 3.9 mmol/L (3.5-5.1) Chloride Level 106 mmol/L (98-107) Carbon Dioxide Level 27 mmol/L (21-32) Anion Gap 5 (6-14) Blood Urea Nitrogen 10 mg/dL (7-20) Creatinine 0.8 mg/dL (0.6-1.0) Estimated GFR (Cockcroft-Gault) 75.6 Glucose Level 118 mg/dL (70-99) Calcium Level 8.5 mg/dL (8.5-10.1) Magnesium Level 1.9 mg/dL (1.8-2.4) Total Bilirubin 0.4 mg/dL (0.2-1.0) Direct Bilirubin 0.1 mg/dL (0.0-0.2) Aspartate Amino Transf (AST/SGOT) 87 U/L (15-37) Alanine Aminotransferase (ALT/SGPT) 460 U/L (14-59) Alkaline Phosphatase 178 U/L (46-116) Total Protein 5.7 g/dL (6.4-8.2) Albumin 2.9 g/dL (3.4-5.0) Brief Hospital Course Ms. Mills is a 51 old woman who presented with acute abdominal pain found to have gallstone pancreatitis. She is postop day 1 from cholecystectomy and feeling well ready for discharge. She does not have a current primary care physician but will be looking for one. She has been cleared by both gastroenterology and general surgery for discharge. She will follow-up with Dr. Garcia as an outpatient. She is up and ambulating tolerating her diet eagerly looking forward to discharge. Short prescription for hydrocodone was written. Assessment Assessment Plan as noted above This note was created using [employer] and may have omissions and/or errors due to the nature of real-time voice cargoman. Discharge Information Condition at Discharge: Improved Follow Up: Weeks Disposition/Orders: D/C to Home Scheduled Citalopram Hydrobromide (Citalopram Hbr) 40 Mg Tablet, 1 TAB PO DAILY for d epression, #90 Ref 1 (Reported) Entered as Reported by: DENNY TRAN on 10/16/21922 Last Action: New Order on 10/16/21922 by DENNY TRAN Clobetasol Propionate (Clobetasol Propionate) 15 Gm Cream..g., 1 AZIZA TP QODAY fo r itching, #15 (Reported) Entered as Reported by: DENNY TRAN on 10/16/21922 Last Action: New Order on 10/16/21922 by DNENY TRAN Lisinopril (Lisinopril) 20 Mg Tablet, 1 TAB PO DAILY for htn, #30 Ref 5 (Re ported) Entered as Reported by: DENNY TRAN on 10/16/21922 Last Action: New Order on 10/16/21922 by DENNY TRAN Pravastatin Sodium (Pravastatin Sodium) 20 Mg Tablet, 1 TAB PO DAILY for high cholesterol, #30 Ref 5 (Reported) Entered as Reported by: DENNY TRAN on 10/16/21922 Last Action: New Order on 10/16/21922 by DENNY TRAN Scheduled PRN Hydrocodone Bit/Acetaminophen (Hydrocodone-Apap 5-325 ) 1 Tab Tablet, 1 TAB PO PRN Q6HRS PRN for SEVERE PAIN 7-10 for 5 Days, #20 Prescribed by: HILLARY HUNTLEY on 10/19/21 1249 Justicifation of Admission Dx: Justifications for Admission: Justification of Admission Dx: Yes Sepsis: Dehydration HILLARY HUNTLEY MD Oct 19, 2021 12:55
--- NOTE | 2021-10-19 13:43 | NUR ---
Discharge Note: IVONE MYERS Discharge instructions and discharge home medications reviewed with Patient and a copy given. All questions have been answered and understanding verbalized. The following instructions and handouts were given: f/u with Dr. Garcia within two weeks. [phone] Discontinued lines and drains: Peripheral IV L hand 22g Patient discharged to Home or Self Care with Family Member via Wheelchair.
--- NOTE | 2021-10-21 17:10 | PATHOLOGY ---
[facility] Accession Number: [id number] . 01 Material submitted: . gallbladder - GALLBLADDER WITH CONTENTS . 01 Clinical history: . CHOLEDOCHOLITHIASIS . 02 Diagnosis: Gallbladder, laparoscopic cholecystectomy: - Cholesterolosis. - Chronic cholecystitis with increased eosinophils. (JPM:kianna; 10/21/2021) QMS 10/21/2021 1506 Local . 02 Comment: There are no calculi identified within the gallbladder lumen or specimen container. There is no evidence of malignancy. (JPM:kianna; 10/21/2021) . 02 Electronically signed: . Zelalem Clayton MD, Pathologist NPI- [id number] . 01 Gross description: . Fixative: Formalin Labeled: Gallbladder and contents Specimen received: Received is an intact gallbladder specimen with a clipped cystic duct margin Dimensions: 6.3 x 3.0 x 2.3 cm Serosa: Vanoss-purple, diffusely hemorrhagic, smooth and glistening [place]: Red-brown, diffusely hemorrhagic, shaggy and cauterized Lymph node: None identified Mucosa: Masterson-pink, diffusely erythematous, diffusely spiculated with yellow spicules Wall thickness: 0.2-0.3 cm Calculi: No calculi are identified within the specimen or specimen container . A1- Office Support neck, body, fundus, and the cystic duct margin. (JGG; 10/18/2021) JGG/JGG 10/18/2021 1704 Local . 02 Pathologist provided ICD-10: K80.10 . 02 CPT . 280997 Specimen Comment: A courtesy copy of this report has been sent to [phone], [phone] Specimen Comment: [id number] Specimen Comment: Report sent to Dr. LEE / DR MITCHELL Specimen Comment: A duplicate report has been generated due to demographic updates. Performed at: [address] [facility] [address], [place] [id number] MD Vimal Cornejo MD Phone: [phone] Performed at: 02 [facility] [place] [address] [place], [place] [id number] MD Zelalem Clayton MD Phone: [phone]
== END 2021-10-19 13:43 | disposition home or self-care (01) | DRG 417 ==
LOC: ER 02:38 → 4 NORTH 06:40
PROVIDERS: ADMIT Internal Medicine; ATTEND Internal Medicine
PROC: BF101ZZ Fluoroscopy of Bile Ducts using Low Osmolar Contrast (ICD-10-PCS; 2021-10-18)
PROC: 0FT44ZZ Resection of Gallbladder, Percutaneous Endoscopic Approach (ICD-10-PCS; principal; 2021-10-18 12:00)
DX: K80.40 Calculus of bile duct with cholecystitis, unspecified, without obstruction (principal); K85.10 Biliary acute pancreatitis without necrosis or infection; K82.8 Other specified diseases of gallbladder; E78.00 Pure hypercholesterolemia, unspecified; E78.5 Hyperlipidemia, unspecified; F17.210 Nicotine dependence, cigarettes, uncomplicated; I10 Essential (primary) hypertension; K66.0 Peritoneal adhesions (postprocedural) (postinfection); K75.9 Inflammatory liver disease, unspecified; R73.03 Prediabetes; Z85.41 Personal history of malignant neoplasm of cervix uteri; Z20.822 Contact with and (suspected) exposure to COVID-19; F41.8 Other specified anxiety disorders; E80.6 Other disorders of bilirubin metabolism
CPT/HCPCS: 36415; 74300; 76705; 80048; 80053; 80076; 81001; 82248; 83690; 83735; 84100; 84484; 85025; 86705; 86709; 86803; 87340; 87426; 93005; 96361; 96365; 96375; A4213; A4314; A4930; A6219; C1887; C9113; J0690; J0780; J1100; J1170; J1200; J1644; J1650; J1885; J2270; J2405; J2543; J2704; J2710; J3010; J3490; J7030; J7120; Q9966; Q9967; U0003; 99285-25; G0378; Q0163